=== PATIENT | male | born 1960 | race Caucasian/White ===

== ENCOUNTER 2021-05-01 16:53 | Inpatient (IN) | payer BC, SELFPAY ==
[2021-05-01 17:26] LABS: #Lymphocytes 0.8 thou/uL (1.20-3.40); #Monocytes 0.4 thou/uL (0.11-0.59); #Neutrophils 5.9 thou/uL (1.40-6.50); %Basophils 0.4 % (0.0-1.0); %Eosinophils 0.5 % (0.0-10.0); %Lymphocytes 11.1 % (21.0-51.0); %Monocytes 5.3 % (0.0-10.0); %Neutrophils 82.7 % (42.0-75.0); Hemoglobin 10.3 g/dL (14.0-18.0); Mean Corpuscular HGB CONC 34.3 g/dL (32.0-36.0); Mean Corpuscular Hemoglobin 35.5 pg (27.0-31.0); Mean Platelet Volume 9.8 fL (7.4-10.4); Platelet Count 110 thou/uL (130-400); RBC Distribution Width 18.3 % (11.5-14.5); White Blood Cell (WBC) Count 7.1 thou/uL (4.8-10.8)
[2021-05-01 17:44] LABS: ALT (SGPT) 44 U/L (8-55); AST (SGOT) 212 U/L (5-34); Albumin 2.8 g/dL (3.4-4.8); Alkaline Phosphatase 1059 U/L (40-110); Anion Gap 16 mmol/L (10-20); BUN (Urea Nitrogen) 10 mg/dL (8.4-25.7); Bilirubin, Total 20.7 mg/dL (0.2-1.2); Calc. Creatinine Clearance 0 mL/min (70-130); Calcium 8.7 mg/dL (7.8-10.44); Carbon Dioxide 25 mmol/L (23-31); Chloride 88 mmol/L (98-107); Globulin 3.1 g/dL (2.4-3.5); Glucose 113 mg/dL (80-115); Lipase 65 U/L (8-78); Potassium 3.4 mmol/L (3.5-5.1); Protein, Total 5.9 g/dL (5.8-8.1); Sodium 126 mmol/L (136-145)
[2021-05-01 18:50] LABS: Bilirubin 4+ (Negative); Blood, Urine Negative (Negative); Clarity Turbid (Clear); Glucose, Urine (Dipstick) Normal (Negative); Ketone, Urine 10 mg/dL (Negative); Leukocyte Negative Leu/uL (Negative); Nitrite Negative (Negative); Protein, Urine (Dipstick) Negative (Neg-Trace); Specific Gravity, Urine 1.012 (1.002-1.036); Urobilinogen 6 mg/dL (Less than 2)
[2021-05-01 21:18] LABS: PTT 34.1 sec (22.9-36.1); Prothrombin Time 13.5 sec (12.0-14.7)
[2021-05-01 21:21] LABS: Acetaminophen Less than 6.0 mcg/mL (10.0-30.0); Alcohol Less than 10 mg/dL (Less than 10); Salicylate Less than 8.0 mg/dL (15.0-30.0)
[2021-05-01 23:30] LABS: HBCM Index 0.08 S/CO (0-0.79); Hep A IgM AB Non-Reactive (NonReactive); Hep A IgM S/CO 0.11 S/CO (0-0.79); Hep B Surf Ag Non-Reactive S/CO (NonReactive); Hep C IgG Ab Non-Reactive (NonReactive); Hep C Index 0.33 S/CO (0-0.79); Hepatitis B Core IgM Abs Non-Reactive (NonReactive)
[2021-05-02 04:53] VITALS: BMI 25.3
[2021-05-02] MEDS ORDERED: Sodium Chloride 0.9% 1,000 ML IV SCH (08:00)
[2021-05-02] MEDS ORDERED: Ondansetron PF 4 MG/2 ML Vial IVP PRN (08:15)
[2021-05-02] MEDS ORDERED: Ondansetron ODT 4 MG TAB PO PRN ×2 (08:15→08:27)
[2021-05-02] MEDS ORDERED: Lorazepam 2 MG/ML VIAL IM PRN (08:27)
[2021-05-02] MEDS ORDERED: Lorazepam 1 MG TAB PO PRN (08:27)
[2021-05-02] MEDS ORDERED: Electrolyte Replacement Protocol 1 EACH FS PRN (08:30)
[2021-05-02 08:54] LABS: Sodium, Urine Less than 20 mmol/L (Not Available); Urea Nitrogen, Random Urine 257 mg/dl
[2021-05-02] MEDS ORDERED: Potassium Chloride 20 MEQ TAB PO SCH (09:00)
[2021-05-02 09:17] LABS: Magnesium 1.5 mg/dL (1.6-2.6); Sodium 130 mmol/L (136-145)
[2021-05-02] MEDS ORDERED: Magnesium 2 GM/50 ML 2 GM in Premix Bag 1 BAG IVPB SCH (10:15)
[2021-05-02] MEDS: Thiamine HCl 200 MG/2 ML VIAL SLOW IVP SCH (10:58)
[2021-05-02] MEDS: Nicotine 14 MG PATCH TD SCH (10:58)
[2021-05-02] MEDS: Enoxaparin Sodium 40 MG/0.4 ML SYRINGE SC SCH (11:00)
[2021-05-02] MEDS: Multivit, Therapeutic 1 TAB PO SCH (11:01)
[2021-05-02] MEDS: Folic Acid 1 MG TAB PO SCH (11:01)
[2021-05-02] MEDS: Lorazepam 1 MG TAB PO SCH ×2 (11:01→17:44)
[2021-05-02] MEDS: Sodium Chloride 0.9% 1,000 ML IV SCH (11:05)
[2021-05-02] MEDS ORDERED: Gabapentin 400 MG CAP PO SCH (11:45)
[2021-05-02 11:57] LABS: SARS-CoV-2 PCR by NAA Not Detected (NotDetected)
[2021-05-02 12:23] LABS: Amphetamine Not Detected (NotDetected); Barbiturates Screen Not Detected (NotDetected); Benzodiazepine Screen Not Detected (NotDetected); Cocaine Metabolite Screen Not Detected (NotDetected); Methadone Not Detected (NotDetected); Methamphetamine Not Detected (NotDetected); Opiate Screen Not Detected (NotDetected); Oxycodone Screen Not Detected (NotDetected); Phencyclidine (PCP) Not Detected (NotDetected); THC/Cannabinoid Screen Not Detected (NotDetected); Tricyclic Screen Not Detected (NotDetected)
[2021-05-02] MEDS: Gabapentin 400 MG CAP PO SCH ×2 (16:08→20:25)
[2021-05-02 16:12] LABS: Sodium 127 mmol/L (136-145)
[2021-05-02] MEDS ORDERED: prednisoLONE 10 MG ODT TAB PO SCH (16:45)
[2021-05-02 20:46] LABS: Sodium 128 mmol/L (136-145)
[2021-05-03] MEDS: Lorazepam 1 MG TAB PO SCH ×3 (02:35→10:38)
[2021-05-03] MEDS: Sodium Chloride 0.9% 1,000 ML IV SCH (02:36)
[2021-05-03 08:07] LABS: #Lymphocytes 0.9 thou/uL (1.20-3.40); #Monocytes 0.4 thou/uL (0.11-0.59); %Basophils 0.2 % (0.0-1.0); %Eosinophils 0.1 % (0.0-10.0); %Lymphocytes 11.6 % (21.0-51.0); %Neutrophils 82.1 % (42.0-75.0); Hemoglobin 9.1 g/dL (14.0-18.0); Mean Corpuscular HGB CONC 33.7 g/dL (32.0-36.0); Mean Corpuscular Hemoglobin 35.5 pg (27.0-31.0); Mean Platelet Volume 10.6 fL (7.4-10.4); Platelet Count 110 thou/uL (130-400); RBC Distribution Width 18.8 % (11.5-14.5); Red Blood Cell (RBC) Count 2.56 mill/uL (4.70-6.10); White Blood Cell (WBC) Count 7.3 thou/uL (4.8-10.8)
[2021-05-03 08:12] LABS: Sodium 131 mmol/L (136-145)
[2021-05-03 08:18] LABS: ALT (SGPT) 36 U/L (8-55); AST (SGOT) 180 U/L (5-34); Albumin 2.7 g/dL (3.4-4.8); Alkaline Phosphatase 909 U/L (40-110); Anion Gap 13 mmol/L (10-20); BUN (Urea Nitrogen) 8 mg/dL (8.4-25.7); Bilirubin, Total 20.1 mg/dL (0.2-1.2); Calc. Creatinine Clearance 146 mL/min (70-130); Calcium 8.6 mg/dL (7.8-10.44); Carbon Dioxide 23 mmol/L (23-31); Chloride 97 mmol/L (98-107); Globulin 2.9 g/dL (2.4-3.5); Glucose 128 mg/dL (80-115); Potassium 3.7 mmol/L (3.5-5.1); Protein, Total 5.6 g/dL (5.8-8.1); Sodium 129 mmol/L (136-145)
[2021-05-03] MEDS ORDERED: Lorazepam 1 MG TAB PO PRN (08:27)
[2021-05-03 08:34] LABS: Ferritin 609.26 ng/mL (22-322)
[2021-05-03] MEDS ORDERED: prednisoLONE 10 MG ODT TAB PO SCH (09:00)
[2021-05-03 09:25] LABS: Vitamin B12 Greater than 2000 pg/mL (211-911)
[2021-05-03] MEDS: Gabapentin 400 MG CAP PO SCH ×2 (10:33→15:08)
[2021-05-03] MEDS: Folic Acid 1 MG TAB PO SCH (10:38)
[2021-05-03] MEDS: Thiamine HCl 200 MG/2 ML VIAL SLOW IVP SCH (10:38)
[2021-05-03] MEDS: Nicotine 14 MG PATCH TD SCH (10:38)
[2021-05-03] MEDS: Enoxaparin Sodium 40 MG/0.4 ML SYRINGE SC SCH (10:39)
[2021-05-03] MEDS: Multivit, Therapeutic 1 TAB PO SCH (10:41)
[2021-05-03] MEDS ORDERED: Sodium Chloride 1 GM TAB PO SCH ×2 (12:15→21:00)
[2021-05-03] MEDS ORDERED: Potassium Chloride 20 MEQ TAB PO SCH (14:00)
[2021-05-03 14:32] LABS: Sodium 132 mmol/L (136-145)
[2021-05-03 16:22] VITALS: BP 177/93; TEMP 98.1
[2021-05-04] MEDS ORDERED: Lorazepam 0.5 MG TAB PO SCH (06:00)
[2021-05-04] MEDS ORDERED: Lorazepam 1 MG TAB PO PRN (08:27)
[2021-05-05] MEDS ORDERED: Lorazepam 0.5 MG TAB PO PRN (08:27)
[2021-05-05] MEDS ORDERED: Thiamine 100 MG TAB PO SCH (09:00)
== END 2021-05-03 17:08 | disposition home or self-care (01) | DRG 433 ==
LOC: ERS 16:53 → T4-B 05-02 00:34
PROVIDERS: ADMIT Student in an Organized Health Care Education/Training Program; ATTEND Internal Medicine
DX: K70.11 Alcoholic hepatitis with ascites (principal); E87.1 Hypo-osmolality and hyponatremia; Z20.822 Contact with and (suspected) exposure to COVID-19; F10.10 Alcohol abuse, uncomplicated; F17.210 Nicotine dependence, cigarettes, uncomplicated; I10 Essential (primary) hypertension; D52.9 Folate deficiency anemia, unspecified; Z96.661 Presence of right artificial ankle joint; Z96.651 Presence of right artificial knee joint; Z79.899 Other long term (current) drug therapy; R53.83 Other fatigue; R82.998 Other abnormal findings in urine
CPT/HCPCS: 36415; 36416; 74177; 76705; 80053; 80074; 80306; 80307; 81003; 82248; 82607; 82728; 82746; 83690; 83735; 83930; 83935; 84295; 84300; 84540; 84560; 85025; 85610; 85730; 87086; J1650; J3411; J3475; J7050; J7510; U0003; U0005

== ENCOUNTER 2021-07-03 12:02 | Inpatient (IN) | payer SELFPAY ==
[2021-07-03 13:04] LABS: #Basophils 0.1 thou/uL (0.0-0.2); #Eosinphils 0.1 thou/uL (0.0-0.7); #Lymphocytes 1.6 thou/uL (1.20-3.40); #Monocytes 0.9 thou/uL (0.11-0.59); #Neutrophils 10.8 thou/uL (1.40-6.50); %Basophils 0.4 % (0.0-1.0); %Eosinophils 0.8 % (0.0-10.0); %Lymphocytes 11.9 % (21.0-51.0); %Monocytes 6.7 % (0.0-10.0); %Neutrophils 80.2 % (42.0-75.0); Hemoglobin 14.1 g/dL (14.0-18.0); Mean Corpuscular HGB CONC 32.7 g/dL (32.0-36.0); Mean Corpuscular Hemoglobin 35.7 pg (27.0-31.0); Mean Platelet Volume 8.3 fL (7.4-10.4); Platelet Count 188 thou/uL (130-400); RBC Distribution Width 12.9 % (11.5-14.5); Red Blood Cell (RBC) Count 3.95 mill/uL (4.70-6.10); White Blood Cell (WBC) Count 13.4 thou/uL (4.8-10.8)
[2021-07-03 13:32] LABS: ALT (SGPT) 17 U/L (8-55); AST (SGOT) 57 U/L (5-34); Albumin 4.1 g/dL (3.4-4.8); Alkaline Phosphatase 236 U/L (40-110); Anion Gap 18 mmol/L (10-20); BUN (Urea Nitrogen) 49 mg/dL (8.4-25.7); Bilirubin, Total 5.1 mg/dL (0.2-1.2); Calc. Creatinine Clearance 0 mL/min (70-130); Calcium 9.6 mg/dL (7.8-10.44); Carbon Dioxide 21 mmol/L (23-31); Chloride 97 mmol/L (98-107); Globulin 3.4 g/dL (2.4-3.5); Glucose 111 mg/dL (80-115); Potassium 4.8 mmol/L (3.5-5.1); Protein, Total 7.5 g/dL (5.8-8.1); Sodium 131 mmol/L (136-145)
[2021-07-03 16:05] LABS: INR-International Normal Ratio 1.4; Prothrombin Time 17.1 sec (12.0-14.7)
[2021-07-03] MEDS ORDERED: Ondansetron PF 4 MG/2 ML Vial IVP PRN (16:12)
[2021-07-03] MEDS ORDERED: Ondansetron ODT 4 MG TAB PO PRN (16:12)
[2021-07-03] MEDS ORDERED: Acetaminophen 650 MG Suppository PR PRN (16:12)
[2021-07-03] MEDS ORDERED: Acetaminophen 325 MG TAB PO PRN (16:12)
[2021-07-03 17:37] VITALS: BMI 25.2
[2021-07-03] MEDS: Albumin 25% 25 GM/100 ML BOT IVPB SCH (18:05)
[2021-07-03] MEDS: Gabapentin 300 MG CAP PO SCH (19:45)
[2021-07-04] MEDS: Albumin 25% 25 GM/100 ML BOT IVPB SCH
[2021-07-04 00:48] LABS: SARS-CoV-2 PCR by NAA Not Detected (NotDetected)
[2021-07-04 06:59] LABS: #Eosinphils 0.1 thou/uL (0.0-0.7); #Lymphocytes 1.5 thou/uL (1.20-3.40); #Monocytes 0.8 thou/uL (0.11-0.59); #Neutrophils 8.9 thou/uL (1.40-6.50); %Basophils 0.1 % (0.0-1.0); %Eosinophils 1.3 % (0.0-10.0); %Lymphocytes 13.5 % (21.0-51.0); %Monocytes 6.7 % (0.0-10.0); %Neutrophils 78.4 % (42.0-75.0); Mean Corpuscular HGB CONC 32.4 g/dL (32.0-36.0); Mean Corpuscular Hemoglobin 35.5 pg (27.0-31.0); Mean Platelet Volume 8.2 fL (7.4-10.4); Platelet Count 183 thou/uL (130-400); RBC Distribution Width 12.8 % (11.5-14.5); White Blood Cell (WBC) Count 11.3 thou/uL (4.8-10.8)
[2021-07-04 07:16] LABS: ALT (SGPT) 12 U/L (8-55); AST (SGOT) 35 U/L (5-34); Albumin 4.2 g/dL (3.4-4.8); Alkaline Phosphatase 175 U/L (40-110); Anion Gap 17 mmol/L (10-20); BUN (Urea Nitrogen) 55 mg/dL (8.4-25.7); Calc. Creatinine Clearance 24 mL/min (70-130); Calcium 9.3 mg/dL (7.8-10.44); Carbon Dioxide 20 mmol/L (23-31); Chloride 99 mmol/L (98-107); Globulin 2.6 g/dL (2.4-3.5); Glucose 107 mg/dL (80-115); Potassium 4.2 mmol/L (3.5-5.1); Protein, Total 6.8 g/dL (5.8-8.1); Sodium 132 mmol/L (136-145)
[2021-07-04] MEDS: Stress 600 With Zinc 1 TAB PO SCH (08:34)
[2021-07-04] MEDS: Gabapentin 300 MG CAP PO SCH ×3 (08:34→21:22)
[2021-07-05 06:15] LABS: #Eosinphils 0.1 thou/uL (0.0-0.7); #Lymphocytes 1.2 thou/uL (1.20-3.40); #Monocytes 0.7 thou/uL (0.11-0.59); #Neutrophils 7.8 thou/uL (1.40-6.50); %Basophils 0.3 % (0.0-1.0); %Eosinophils 1.4 % (0.0-10.0); %Lymphocytes 12.5 % (21.0-51.0); %Monocytes 7.1 % (0.0-10.0); %Neutrophils 78.8 % (42.0-75.0); Hemoglobin 10.5 g/dL (14.0-18.0); Mean Corpuscular HGB CONC 33.5 g/dL (32.0-36.0); Mean Corpuscular Hemoglobin 36.6 pg (27.0-31.0); Mean Platelet Volume 8.4 fL (7.4-10.4); Platelet Count 139 thou/uL (130-400); RBC Distribution Width 12.6 % (11.5-14.5); Red Blood Cell (RBC) Count 2.87 mill/uL (4.70-6.10); White Blood Cell (WBC) Count 9.9 thou/uL (4.8-10.8)
[2021-07-05 06:39] LABS: ALT (SGPT) 12 U/L (8-55); AST (SGOT) 32 U/L (5-34); Albumin 3.5 g/dL (3.4-4.8); Alkaline Phosphatase 168 U/L (40-110); Anion Gap 14 mmol/L (10-20); BUN (Urea Nitrogen) 52 mg/dL (8.4-25.7); Bilirubin, Total 4.5 mg/dL (0.2-1.2); Calc. Creatinine Clearance 28 mL/min (70-130); Calcium 8.7 mg/dL (7.8-10.44); Carbon Dioxide 21 mmol/L (23-31); Chloride 100 mmol/L (98-107); Globulin 2.5 g/dL (2.4-3.5); Glucose 102 mg/dL (80-115); Potassium 4.1 mmol/L (3.5-5.1); Sodium 131 mmol/L (136-145)
[2021-07-05 08:32] VITALS: BP 115/70; TEMP 98
[2021-07-05] MEDS: Gabapentin 300 MG CAP PO SCH ×2 (08:43→11:49)
[2021-07-05] MEDS: Stress 600 With Zinc 1 TAB PO SCH (08:55)
== END 2021-07-05 14:55 | disposition home or self-care (01) | DRG 682 ==
LOC: ERS 12:02 → 2SW 15:22 → OBSVTOIN 07-04 12:29 → T4-B 07-04 18:41
PROVIDERS: ADMIT Family Medicine; ATTEND Internal Medicine
DX: N17.9 Acute kidney failure, unspecified (principal); K76.7 Hepatorenal syndrome; E87.1 Hypo-osmolality and hyponatremia; Z20.822 Contact with and (suspected) exposure to COVID-19; K70.30 Alcoholic cirrhosis of liver without ascites; F10.10 Alcohol abuse, uncomplicated; Z96.651 Presence of right artificial knee joint; Z96.611 Presence of right artificial shoulder joint; F17.210 Nicotine dependence, cigarettes, uncomplicated; N18.30 Chronic kidney disease, stage 3 unspecified; I12.9 Hypertensive chronic kidney disease with stage 1 through stage 4 chronic kidney disease, or unspecified chronic kidney disease; N18.4 Chronic kidney disease, stage 4 (severe); Z79.899 Other long term (current) drug therapy
CPT/HCPCS: 36415; 80053; 85025; 85610; 96374; 96376; 99283; G0378; P9047; U0003; U0005

== ENCOUNTER 2021-07-23 13:24 | Emergency (ER) | payer SELFPAY ==
[2021-07-23 14:50] LABS: #Eosinphils 0.1 thou/uL (0.0-0.7); #Lymphocytes 1.2 thou/uL (1.20-3.40); #Monocytes 0.8 thou/uL (0.11-0.59); #Neutrophils 7.5 thou/uL (1.40-6.50); %Basophils 0.1 % (0.0-1.0); %Eosinophils 1.2 % (0.0-10.0); %Lymphocytes 12.4 % (21.0-51.0); %Monocytes 7.8 % (0.0-10.0); %Neutrophils 78.5 % (42.0-75.0); Mean Corpuscular HGB CONC 32.7 g/dL (32.0-36.0); Mean Corpuscular Hemoglobin 35.3 pg (27.0-31.0); Mean Platelet Volume 8.4 fL (7.4-10.4); Platelet Count 177 thou/uL (130-400); RBC Distribution Width 12.4 % (11.5-14.5); White Blood Cell (WBC) Count 9.6 thou/uL (4.8-10.8)
[2021-07-23 15:15] LABS: ALT (SGPT) 12 U/L (8-55); AST (SGOT) 32 U/L (5-34); Albumin 3.3 g/dL (3.4-4.8); Alkaline Phosphatase 167 U/L (40-110); Anion Gap 16 mmol/L (10-20); BUN (Urea Nitrogen) 51 mg/dL (8.4-25.7); Bilirubin, Total 3.4 mg/dL (0.2-1.2); Calc. Creatinine Clearance 0 mL/min (70-130); Calcium 9.1 mg/dL (7.8-10.44); Carbon Dioxide 21 mmol/L (23-31); Chloride 96 mmol/L (98-107); Globulin 3.3 g/dL (2.4-3.5); Glucose 116 mg/dL (80-115); Potassium 3.8 mmol/L (3.5-5.1); Protein, Total 6.6 g/dL (5.8-8.1); Sodium 129 mmol/L (136-145)
[2021-07-23 15:23] LABS: INR-International Normal Ratio 1.4; PTT 39.4 sec (22.9-36.1)
[2021-07-23 18:18] LABS: RBC Count-Automated (BF) 56 /cu.mm; WBC/Nucleated-Auto (BF) 103 /cu.mm
[2021-07-23 18:31] LABS: BF Color Yellow; Body Fluid Source Ascites Body Fluid; Clarity Clear (Clear); Tube # EDTA
[2021-07-23 18:33] LABS: BF Segmented Neutrophils 26 %; Cell Count Non Hematic 51 %; Lymphocytes 23 %
== END 2021-07-23 17:55 | disposition home or self-care (01) ==
LOC: ERS 13:24
DX: R18.8 Other ascites (principal); I12.9 Hypertensive chronic kidney disease with stage 1 through stage 4 chronic kidney disease, or unspecified chronic kidney disease; N18.9 Chronic kidney disease, unspecified; K72.90 Hepatic failure, unspecified without coma; F17.210 Nicotine dependence, cigarettes, uncomplicated; Z79.899 Other long term (current) drug therapy
CPT/HCPCS: 49083; 80053; 85025; 85060; 85610; 85730; 87070; 87205; 89051; 94760

== ENCOUNTER 2021-08-14 00:38 | Emergency (ER) | payer SELFPAY ==
[2021-08-14 01:13] LABS: #Eosinphils 0.1 thou/uL (0.0-0.7); #Lymphocytes 1.4 thou/uL (1.20-3.40); #Monocytes 0.7 thou/uL (0.11-0.59); #Neutrophils 5.7 thou/uL (1.40-6.50); %Basophils 0.2 % (0.0-1.0); %Eosinophils 1.4 % (0.0-10.0); %Lymphocytes 17.7 % (21.0-51.0); %Monocytes 8.8 % (0.0-10.0); %Neutrophils 71.9 % (42.0-75.0); Hemoglobin 10.4 g/dL (14.0-18.0); Mean Corpuscular HGB CONC 33.7 g/dL (32.0-36.0); Mean Corpuscular Hemoglobin 36.3 pg (27.0-31.0); Mean Platelet Volume 7.2 fL (7.4-10.4); Platelet Count 208 thou/uL (130-400); RBC Distribution Width 11.6 % (11.5-14.5); Red Blood Cell (RBC) Count 2.87 mill/uL (4.70-6.10); White Blood Cell (WBC) Count 7.9 thou/uL (4.8-10.8)
[2021-08-14 01:25] LABS: INR-International Normal Ratio 1.2; PTT 38.2 sec (22.9-36.1); Prothrombin Time 15.6 sec (12.0-14.7)
[2021-08-14 01:49] LABS: ALT (SGPT) 11 U/L (8-55); AST (SGOT) 40 U/L (5-34); Albumin 2.9 g/dL (3.4-4.8); Alkaline Phosphatase 147 U/L (40-110); Anion Gap 13 mmol/L (10-20); BUN (Urea Nitrogen) 34 mg/dL (8.4-25.7); Bilirubin, Total 2.4 mg/dL (0.2-1.2); Calc. Creatinine Clearance 0 mL/min (70-130); Calcium 9.2 mg/dL (7.8-10.44); Carbon Dioxide 26 mmol/L (23-31); Chloride 96 mmol/L (98-107); Globulin 3.6 g/dL (2.4-3.5); Glucose 119 mg/dL (80-115); Potassium 4.2 mmol/L (3.5-5.1); Protein, Total 6.5 g/dL (5.8-8.1); Sodium 131 mmol/L (136-145)
[2021-08-14] MEDS ORDERED: Xylocaine 1% w/ Epi 1:100K 10 ML VIAL ONE (02:04)
== END 2021-08-14 03:43 | disposition home or self-care (01) ==
LOC: ERS 00:38
DX: K70.31 Alcoholic cirrhosis of liver with ascites (principal); R06.02 Shortness of breath; I10 Essential (primary) hypertension; F17.210 Nicotine dependence, cigarettes, uncomplicated
CPT/HCPCS: 36415; 49083; 80053; 85025; 85610; 85730

== ENCOUNTER 2021-08-23 13:33 | Emergency (ER) | payer BC, SELFPAY ==
[2021-08-23 14:25] LABS: #Basophils 0.1 thou/uL (0.0-0.2); #Eosinphils 0.2 thou/uL (0.0-0.7); #Lymphocytes 1.5 thou/uL (1.20-3.40); #Monocytes 0.7 thou/uL (0.11-0.59); #Neutrophils 5.8 thou/uL (1.40-6.50); %Basophils 0.7 % (0.0-1.0); %Eosinophils 2.1 % (0.0-10.0); %Monocytes 8.8 % (0.0-10.0); %Neutrophils 70.5 % (42.0-75.0); Hemoglobin 10.1 g/dL (14.0-18.0); Mean Corpuscular HGB CONC 32.8 g/dL (32.0-36.0); Mean Corpuscular Hemoglobin 34.7 pg (27.0-31.0); Mean Platelet Volume 7.1 fL (7.4-10.4); Platelet Count 231 thou/uL (130-400); RBC Distribution Width 11.7 % (11.5-14.5); White Blood Cell (WBC) Count 8.2 thou/uL (4.8-10.8)
[2021-08-23] MEDS ORDERED: Lidocaine 1% PF 5 ML VIAL ONE (14:25)
[2021-08-23 14:42] LABS: ALT (SGPT) 10 U/L (8-55); AST (SGOT) 28 U/L (5-34); Albumin 2.6 g/dL (3.4-4.8); Alkaline Phosphatase 131 U/L (40-110); Anion Gap 13 mmol/L (10-20); BUN (Urea Nitrogen) 35 mg/dL (8.4-25.7); Bilirubin, Total 2.4 mg/dL (0.2-1.2); Calc. Creatinine Clearance 0 mL/min (70-130); Calcium 8.8 mg/dL (7.8-10.44); Carbon Dioxide 26 mmol/L (23-31); Chloride 95 mmol/L (98-107); Globulin 3.3 g/dL (2.4-3.5); Glucose 127 mg/dL (80-115); Potassium 3.5 mmol/L (3.5-5.1); Protein, Total 5.9 g/dL (5.8-8.1); Sodium 130 mmol/L (136-145)
== END 2021-08-23 15:50 | disposition home or self-care (01) ==
LOC: ERS 13:33
DX: R18.8 Other ascites (principal); I10 Essential (primary) hypertension; F17.210 Nicotine dependence, cigarettes, uncomplicated; Z79.899 Other long term (current) drug therapy
CPT/HCPCS: 36415; 49083; 80053; 85025

== ENCOUNTER 2021-09-04 07:49 | Day surgery (SDC) | payer BC ==
[2021-08-31 11:11] VITALS: BMI 25.7
[2021-09-04] MEDS ORDERED: Lidocaine 1% PF 5 ML VIAL ONE (08:03)
[2021-09-04] MEDS ORDERED: Albumin 25% 0 ML ONE (08:03)
[2021-09-04] MEDS ORDERED: Sodium Bicarbonate 2.5 MEQ/5 ML VIAL ONE (08:03)
[2021-09-04 10:18] VITALS: BP 103/67; TEMP 97.6
== END 2021-09-04 10:00 | disposition home or self-care (01) ==
LOC: ULT 07:49
PROVIDERS: ATTEND Internal Medicine Gastroenterology
PROC: 0W9G3ZZ Drainage of Peritoneal Cavity, Percutaneous Approach (ICD-10-PCS; principal; 2021-09-04)
DX: K74.60 Unspecified cirrhosis of liver (principal); R18.8 Other ascites; I10 Essential (primary) hypertension; F10.21 Alcohol dependence, in remission; F17.210 Nicotine dependence, cigarettes, uncomplicated; Z79.899 Other long term (current) drug therapy
CPT/HCPCS: 49083; P9047

== ENCOUNTER 2021-09-20 09:40 | Day surgery (SDC) | payer BC ==
[2021-09-19 14:54] VITALS: BMI 25.7
[2021-09-20] MEDS ORDERED: Lidocaine 1% PF 5 ML VIAL ONE (10:36)
[2021-09-20] MEDS ORDERED: Sodium Bicarbonate 2.5 MEQ/5 ML VIAL ONE (10:36)
[2021-09-20] MEDS ORDERED: Albumin 25% 100 ML ONE (10:37)
[2021-09-20 13:44] VITALS: BP 113/75; TEMP 97.8
== END 2021-09-20 11:45 | disposition home or self-care (01) ==
LOC: ULT 09:40
PROVIDERS: ATTEND Internal Medicine Gastroenterology
PROC: 0W9G3ZZ Drainage of Peritoneal Cavity, Percutaneous Approach (ICD-10-PCS; principal; 2021-09-20)
DX: K74.60 Unspecified cirrhosis of liver (principal); R18.8 Other ascites; I10 Essential (primary) hypertension; F17.210 Nicotine dependence, cigarettes, uncomplicated; F10.21 Alcohol dependence, in remission; Z79.899 Other long term (current) drug therapy
CPT/HCPCS: 49083; P9047

== ENCOUNTER 2021-10-02 07:34 | Day surgery (SDC) | payer BC ==
[2021-09-28 13:53] VITALS: BMI 25.7
[2021-10-02] MEDS ORDERED: Albumin 25% 100 ML ONE (07:46)
[2021-10-02] MEDS ORDERED: Lidocaine 1% PF 5 ML VIAL ONE (07:46)
[2021-10-02] MEDS ORDERED: Sodium Bicarbonate 2.5 MEQ/5 ML VIAL ONE (07:46)
[2021-10-02 08:05] LABS: #Basophils 0.1 thou/uL (0.0-0.2); #Eosinphils 0.2 thou/uL (0.0-0.7); #Lymphocytes 1.7 thou/uL (1.20-3.40); #Monocytes 0.8 thou/uL (0.11-0.59); #Neutrophils 7.1 thou/uL (1.40-6.50); %Basophils 0.7 % (0.0-1.0); %Eosinophils 2.3 % (0.0-10.0); %Lymphocytes 17.1 % (21.0-51.0); %Monocytes 8.3 % (0.0-10.0); %Neutrophils 71.6 % (42.0-75.0); Hemoglobin 10.9 g/dL (14.0-18.0); Mean Corpuscular HGB CONC 32.9 g/dL (32.0-36.0); Mean Platelet Volume 7.4 fL (7.4-10.4); Platelet Count 248 thou/uL (130-400); RBC Distribution Width 12.2 % (11.5-14.5); Red Blood Cell (RBC) Count 3.21 mill/uL (4.70-6.10); White Blood Cell (WBC) Count 9.9 thou/uL (4.8-10.8)
[2021-10-02 08:18] LABS: INR-International Normal Ratio 1.2
[2021-10-02 08:19] LABS: PTT 40.4 sec (22.9-36.1)
[2021-10-02 08:24] LABS: Anion Gap 16 mmol/L (10-20); BUN (Urea Nitrogen) 34 mg/dL (8.4-25.7); Calc. Creatinine Clearance 0 mL/min (70-130); Calcium 9.6 mg/dL (7.8-10.44); Carbon Dioxide 20 mmol/L (23-31); Chloride 96 mmol/L (98-107); Estimated GFR 39; Glucose 115 mg/dL (80-115); Potassium 4.5 mmol/L (3.5-5.1); Sodium 127 mmol/L (136-145)
[2021-10-02 10:00] VITALS: BP 94/66; TEMP 97.8
== END 2021-10-02 10:00 | disposition home or self-care (01) ==
LOC: ULT 07:34
PROVIDERS: ATTEND Internal Medicine Gastroenterology
PROC: 0W9G3ZZ Drainage of Peritoneal Cavity, Percutaneous Approach (ICD-10-PCS; principal; 2021-10-02)
DX: R18.8 Other ascites (principal)
CPT/HCPCS: 36415; 49083; 80048; 85025; 85610; 85730; P9047

== ENCOUNTER 2021-10-09 09:59 | Emergency (ER) | payer BC ==
[2021-10-09 10:53] LABS: #Basophils 0.1 thou/uL (0.0-0.2); #Eosinphils 0.3 thou/uL (0.0-0.7); #Lymphocytes 1.7 thou/uL (1.20-3.40); #Monocytes 0.7 thou/uL (0.11-0.59); #Neutrophils 7.3 thou/uL (1.40-6.50); %Basophils 1.2 % (0.0-1.0); %Eosinophils 2.8 % (0.0-10.0); %Lymphocytes 16.9 % (21.0-51.0); %Monocytes 7.2 % (0.0-10.0); %Neutrophils 71.8 % (42.0-75.0); Hemoglobin 11.4 g/dL (14.0-18.0); Mean Corpuscular HGB CONC 33.4 g/dL (32.0-36.0); Mean Corpuscular Hemoglobin 34.4 pg (27.0-31.0); Mean Platelet Volume 7.5 fL (7.4-10.4); Platelet Count 251 thou/uL (130-400); RBC Distribution Width 12.2 % (11.5-14.5); Red Blood Cell (RBC) Count 3.32 mill/uL (4.70-6.10); White Blood Cell (WBC) Count 10.2 thou/uL (4.8-10.8)
[2021-10-09 11:27] LABS: ALT (SGPT) 16 U/L (8-55); AST (SGOT) 38 U/L (5-34); Albumin 2.9 g/dL (3.4-4.8); Alkaline Phosphatase 130 U/L (40-110); Anion Gap 14 mmol/L (10-20); BUN (Urea Nitrogen) 37 mg/dL (8.4-25.7); Bilirubin, Total 1.2 mg/dL (0.2-1.2); Calc. Creatinine Clearance 0 mL/min (70-130); Calcium 10.2 mg/dL (7.8-10.44); Carbon Dioxide 20 mmol/L (23-31); Chloride 97 mmol/L (98-107); Estimated GFR 45; Globulin 3.4 g/dL (2.4-3.5); Glucose 129 mg/dL (80-115); Potassium 4.8 mmol/L (3.5-5.1); Protein, Total 6.3 g/dL (5.8-8.1); Sodium 126 mmol/L (136-145)
== END 2021-10-09 12:35 | disposition home or self-care (01) ==
LOC: ERS 09:59
DX: E87.1 Hypo-osmolality and hyponatremia (principal); I12.9 Hypertensive chronic kidney disease with stage 1 through stage 4 chronic kidney disease, or unspecified chronic kidney disease; N18.9 Chronic kidney disease, unspecified; F17.210 Nicotine dependence, cigarettes, uncomplicated; Z79.899 Other long term (current) drug therapy
CPT/HCPCS: 80053; 85025; 93005

== ENCOUNTER 2021-10-16 08:02 | Day surgery (SDC) | payer BC ==
[2021-10-15 09:39] VITALS: BMI 25.1
[2021-10-16] MEDS ORDERED: Sodium Bicarbonate 2.5 MEQ/5 ML VIAL ONE (08:06)
[2021-10-16] MEDS ORDERED: Lidocaine 1% PF 5 ML VIAL ONE (08:06)
[2021-10-16] MEDS ORDERED: Albumin 25% 100 ML ONE (08:06)
[2021-10-16] MEDS ORDERED: Albumin 25% 25 GM/100 ML BOT IVPB ONE (08:30)
[2021-10-16 12:47] VITALS: BP 101/65
== END 2021-10-16 09:35 | disposition home or self-care (01) ==
LOC: ULT 08:02
PROVIDERS: ATTEND Internal Medicine Gastroenterology
PROC: 0W9G3ZZ Drainage of Peritoneal Cavity, Percutaneous Approach (ICD-10-PCS; principal; 2021-10-16)
DX: K74.60 Unspecified cirrhosis of liver (principal); R18.8 Other ascites
CPT/HCPCS: 49083; P9047

== ENCOUNTER 2021-11-01 07:47 | Day surgery (SDC) | payer BC ==
[2021-11-01 07:57] LABS: #Basophils 0.1 thou/uL (0.0-0.2); #Eosinphils 0.4 thou/uL (0.0-0.7); #Lymphocytes 1.5 thou/uL (1.20-3.40); #Monocytes 0.7 thou/uL (0.11-0.59); %Basophils 0.6 % (0.0-1.0); %Eosinophils 4.6 % (0.0-10.0); %Lymphocytes 16.9 % (21.0-51.0); %Monocytes 7.9 % (0.0-10.0); Hemoglobin 10.6 g/dL (14.0-18.0); Mean Corpuscular HGB CONC 33.8 g/dL (32.0-36.0); Mean Corpuscular Hemoglobin 34.3 pg (27.0-31.0); Mean Platelet Volume 7.1 fL (7.4-10.4); Platelet Count 265 thou/uL (130-400); RBC Distribution Width 12.2 % (11.5-14.5); White Blood Cell (WBC) Count 8.6 thou/uL (4.8-10.8)
[2021-11-01] MEDS ORDERED: Lidocaine 1% PF 5 ML VIAL ONE (08:03)
[2021-11-01] MEDS ORDERED: Sodium Bicarbonate 2.5 MEQ/5 ML VIAL ONE (08:03)
[2021-11-01 08:05] LABS: INR-International Normal Ratio 1.1; Prothrombin Time 14.7 sec (12.0-14.7)
[2021-11-01 08:16] LABS: ALT (SGPT) 25 U/L (8-55); AST (SGOT) 40 U/L (5-34); Albumin 2.9 g/dL (3.4-4.8); Alkaline Phosphatase 145 U/L (40-110); Anion Gap 14 mmol/L (10-20); BUN (Urea Nitrogen) 44 mg/dL (8.4-25.7); Calc. Creatinine Clearance 46 mL/min (70-130); Calcium 9.3 mg/dL (7.8-10.44); Carbon Dioxide 19 mmol/L (23-31); Chloride 97 mmol/L (98-107); Estimated GFR 53; Globulin 3.3 g/dL (2.4-3.5); Glucose 116 mg/dL (80-115); Potassium 4.3 mmol/L (3.5-5.1); Protein, Total 6.2 g/dL (5.8-8.1); Sodium 126 mmol/L (136-145)
[2021-11-01 10:10] VITALS: BP 114/69; TEMP 97.7; BMI 19.4
[2021-11-01 13:23] LABS: RBC Count-Automated (BF) 130 /cu.mm; WBC/Nucleated-Auto (BF) 76 /cu.mm
[2021-11-01 13:27] LABS: BF Color Yellow; Body Fluid Source Ascites Body Fluid; Clarity Hazy (Clear); Tube # EDTA
[2021-11-01 13:45] LABS: BF Segmented Neutrophils 17 %; Cell Count Non Hematic 36 %; Eosinophils 1 %; Lymphocytes 46 %
[2021-11-01 14:27] LABS: Follow-up Chemistry Comp? YES; Follow-up Result - Chemistry REPORT FAXED
== END 2021-11-01 09:55 | disposition home or self-care (01) ==
LOC: ULT 07:47
PROVIDERS: ATTEND Internal Medicine Gastroenterology
PROC: 0W9G3ZX Drainage of Peritoneal Cavity, Percutaneous Approach, Diagnostic (ICD-10-PCS; principal; 2021-11-01)
DX: K70.31 Alcoholic cirrhosis of liver with ascites (principal); K72.90 Hepatic failure, unspecified without coma; G47.00 Insomnia, unspecified; I10 Essential (primary) hypertension; F17.210 Nicotine dependence, cigarettes, uncomplicated; F10.11 Alcohol abuse, in remission; I95.89 Other hypotension; Z79.899 Other long term (current) drug therapy
CPT/HCPCS: 49083; 80053; 82042; 84157; 85025; 85060; 85610; 87070; 87205; 88112; 88305; 89051

== ENCOUNTER 2021-11-07 15:00 | Day surgery (SDC) | payer BC ==
[2021-11-07] MEDS ORDERED: Albumin 25% 25 GM/100 ML BOT IVPB SCH (15:15)
[2021-11-07 16:01] VITALS: BP 103/67; TEMP 97.9
== END 2021-11-07 17:05 | disposition home or self-care (01) ==
LOC: ONC/OP 15:00
PROVIDERS: ATTEND Internal Medicine Gastroenterology
DX: K70.31 Alcoholic cirrhosis of liver with ascites (principal)
CPT/HCPCS: 96365; P9047

== ENCOUNTER 2021-11-09 09:25 | Outpatient (CLI) | payer BC ==
[2021-11-09 10:37] LABS: #Basophils 0.1 10x3/uL (0.0-0.2); #Eosinphils 0.3 10x3/uL (0.0-0.5); #Monocytes 0.5 10x3/uL (0.0-1.1); #Neutrophils 5.6 10x3/uL (1.5-8.4); %Basophils 0.7 % (0.0-2.0); %Eosinophils 3.5 % (0.0-6.0); %Lymphocytes 14.4 % (18.0-47.0); %Monocytes 6.8 % (0.0-10.0); %Neutrophils 74.2 % (40.0-75.0); Hemoglobin 9.9 g/dL (13.5-17.5); Mean Corpuscular HGB CONC 35.5 g/dL (32.0-36.0); Mean Corpuscular Hemoglobin 33.8 pg (27.0-33.0); Mean Corpuscular Volume 95.2 fl (81.2-95.1); Platelet Count 203 10x3/uL (150-450); RBC Distribution Width 12.7 % (11.5-14.5); Red Blood Cell (RBC) Count 2.93 10x6/uL (4.32-5.72); White Blood Cell (WBC) Count 7.5 10x3/uL (3.5-10.5)
[2021-11-09 10:39] LABS: INR-International Normal Ratio 1.1; PTT 27.8 sec (22.0-33.0); Prothrombin Time 11.5 sec (9.5-12.1)
[2021-11-09 10:42] LABS: Anion Gap 12 mmol/L (10-20); BUN (Urea Nitrogen) 43 mg/dL (8.4-25.7); Calc. Creatinine Clearance 0 mL/min (70-130); Calcium 8.8 mg/dL (7.8-10.44); Carbon Dioxide 20 mmol/L (23-31); Chloride 97 mmol/L (98-107); Estimated GFR 61; Glucose 129 mg/dL (80-115); Potassium 4.5 mmol/L (3.5-5.1); Sodium 124 mmol/L (136-145)
== END 2021-11-09 09:26 | disposition home or self-care (01) ==
LOC: LABBT 09:25
PROVIDERS: ATTEND Surgery
DX: Z01.812 Encounter for preprocedural laboratory examination (principal); Z20.822 Contact with and (suspected) exposure to COVID-19
CPT/HCPCS: 80048; 85025; 85610; 85730; 87811

== ENCOUNTER 2021-11-14 09:38 | Day surgery (SDC) | payer BC ==
[2021-11-13 11:04] VITALS: BMI 22.3
[2021-11-14] MEDS ORDERED: Bupivacaine/Epinephrine 0.25% 30 ML VIAL ONE (11:00)
[2021-11-14] MEDS ORDERED: fentaNYL Citrate/PF 100 MCG/2 ML SYRINGE ONE (11:07)
[2021-11-14] MEDS ORDERED: Propofol 1,000 MG/100 ML VIAL IV ONE (11:07)
[2021-11-14] MEDS ORDERED: CEFAZOLIN 2 GM VIAL ONE (12:03)
[2021-11-14] MEDS ORDERED: Sodium Chloride 0.9% 100 ML ONE (12:03)
[2021-11-14] MEDS ORDERED: Lidocaine 1% PF 5 ML VIAL ONE (12:18)
== END 2021-11-14 15:55 | disposition home or self-care (01) ==
LOC: SDC 09:38
PROVIDERS: ATTEND Surgery
PROC: 02HV33Z Insertion of Infusion Device into Superior Vena Cava, Percutaneous Approach (ICD-10-PCS; principal; 2021-11-14)
PROC: 0JH60WZ Insertion of Totally Implantable Vascular Access Device into Chest Subcutaneous Tissue and Fascia, Open Approach (ICD-10-PCS; principal; 2021-11-14)
DX: I87.2 Venous insufficiency (chronic) (peripheral) (principal); K74.60 Unspecified cirrhosis of liver; K76.6 Portal hypertension; F17.210 Nicotine dependence, cigarettes, uncomplicated; M19.90 Unspecified osteoarthritis, unspecified site; Z79.899 Other long term (current) drug therapy
CPT/HCPCS: 71045; C1788; J0690; J1642; J2704; J3490

== ENCOUNTER 2021-11-15 08:09 | Day surgery (SDC) | payer BC ==
[2021-11-15] MEDS ORDERED: Lidocaine 1% MPF 2 ML VIAL ONE (08:27)
[2021-11-15] MEDS ORDERED: Albumin 25% 200 ML ONE (08:27)
[2021-11-15] MEDS ORDERED: Sodium Bicarbonate 2.5 MEQ/5 ML VIAL ONE (08:27)
[2021-11-15 09:39] LABS: INR-International Normal Ratio 1.2; Prothrombin Time 15.6 sec (12.0-14.7)
[2021-11-15 09:44] LABS: ALT (SGPT) 14 U/L (8-55); AST (SGOT) 34 U/L (5-34); Albumin 2.9 g/dL (3.4-4.8); Alkaline Phosphatase 122 U/L (40-110); Anion Gap 13 mmol/L (10-20); BUN (Urea Nitrogen) 44 mg/dL (8.4-25.7); Bilirubin, Total 0.8 mg/dL (0.2-1.2); Calc. Creatinine Clearance 45 mL/min (70-130); Calcium 8.8 mg/dL (7.8-10.44); Carbon Dioxide 19 mmol/L (23-31); Chloride 99 mmol/L (98-107); Estimated GFR 52; Globulin 2.9 g/dL (2.4-3.5); Glucose 113 mg/dL (80-115); Potassium 4.4 mmol/L (3.5-5.1); Protein, Total 5.8 g/dL (5.8-8.1); Sodium 127 mmol/L (136-145)
[2021-11-15 10:59] VITALS: BP 97/66; TEMP 97.7; BMI 22.2
== END 2021-11-15 10:30 | disposition home or self-care (01) ==
LOC: ULT 08:09
PROVIDERS: ATTEND Internal Medicine Gastroenterology
PROC: 0W9G3ZZ Drainage of Peritoneal Cavity, Percutaneous Approach (ICD-10-PCS; principal; 2021-11-15)
DX: K70.31 Alcoholic cirrhosis of liver with ascites (principal); F10.10 Alcohol abuse, uncomplicated; K72.90 Hepatic failure, unspecified without coma; G47.00 Insomnia, unspecified
CPT/HCPCS: 49083; 80053; 85610; J1642; P9047

== ENCOUNTER 2021-11-29 07:41 | Day surgery (SDC) | payer BC ==
[2021-11-27 11:20] VITALS: BMI 19.5
[2021-11-29] MEDS ORDERED: Lidocaine 1% MPF 2 ML VIAL ONE (07:51)
[2021-11-29] MEDS ORDERED: Sodium Bicarbonate 2.5 MEQ/5 ML VIAL ONE (07:51)
[2021-11-29] MEDS ORDERED: Albumin 25% 200 ML ONE (07:51)
[2021-11-29 10:27] LABS: #Eosinphils 0.4 thou/uL (0.0-0.7); #Lymphocytes 1.3 thou/uL (1.20-3.40); #Monocytes 0.7 thou/uL (0.11-0.59); #Neutrophils 5.9 thou/uL (1.40-6.50); %Basophils 0.6 % (0.0-1.0); %Eosinophils 4.4 % (0.0-10.0); %Lymphocytes 15.2 % (21.0-51.0); %Neutrophils 71.8 % (42.0-75.0); Hemoglobin 8.8 g/dL (14.0-18.0); Mean Corpuscular HGB CONC 34.6 g/dL (32.0-36.0); Mean Corpuscular Hemoglobin 34.4 pg (27.0-31.0); Mean Corpuscular Volume 99.4 fL (78.0-98.0); Mean Platelet Volume 7.5 fL (7.4-10.4); Platelet Count 222 thou/uL (130-400); RBC Distribution Width 11.9 % (11.5-14.5); Red Blood Cell (RBC) Count 2.56 mill/uL (4.70-6.10); White Blood Cell (WBC) Count 8.3 thou/uL (4.8-10.8)
[2021-11-29 10:51] LABS: ALT (SGPT) 13 U/L (8-55); AST (SGOT) 26 U/L (5-34); Albumin 2.9 g/dL (3.4-4.8); Alkaline Phosphatase 122 U/L (40-110); Anion Gap 15 mmol/L (10-20); BUN (Urea Nitrogen) 60 mg/dL (8.4-25.7); Bilirubin, Total 0.8 mg/dL (0.2-1.2); Calc. Creatinine Clearance 24 mL/min (70-130); Calcium 8.8 mg/dL (7.8-10.44); Carbon Dioxide 16 mmol/L (23-31); Chloride 103 mmol/L (98-107); Estimated GFR 25; Globulin 2.6 g/dL (2.4-3.5); Glucose 121 mg/dL (80-115); Potassium 3.8 mmol/L (3.5-5.1); Protein, Total 5.5 g/dL (5.8-8.1); Sodium 130 mmol/L (136-145)
[2021-11-29 10:55] LABS: INR-International Normal Ratio 1.2; Prothrombin Time 15.7 sec (12.0-14.7)
== END 2021-11-29 09:45 | disposition home or self-care (01) ==
LOC: ULT 07:41
PROVIDERS: ATTEND Internal Medicine Gastroenterology
PROC: 0W9G3ZZ Drainage of Peritoneal Cavity, Percutaneous Approach (ICD-10-PCS; principal; 2021-11-29)
DX: K74.60 Unspecified cirrhosis of liver (principal); R18.8 Other ascites; Z79.899 Other long term (current) drug therapy
CPT/HCPCS: 49083; 80053; 85025; 85610; J1642; P9047

== ENCOUNTER 2021-12-13 07:51 | Day surgery (SDC) | payer BC ==
[2021-12-12 09:17] VITALS: BMI 23.7
[2021-12-13] MEDS ORDERED: Albumin 25% 100 ML ONE ×2 (07:56→08:03)
[2021-12-13] MEDS ORDERED: Sodium Bicarbonate 2.5 MEQ/5 ML VIAL ONE (07:56)
[2021-12-13] MEDS ORDERED: Lidocaine 2% PF 5 ML VIAL ONE ×2 (07:56→08:48)
[2021-12-13 09:50] VITALS: BP 121/71; TEMP 98.8
[2021-12-13 10:41] LABS: #Eosinphils 0.3 thou/uL (0.0-0.7); #Lymphocytes 1.3 thou/uL (1.20-3.40); #Monocytes 0.6 thou/uL (0.11-0.59); #Neutrophils 5.6 thou/uL (1.40-6.50); %Basophils 0.4 % (0.0-1.0); %Eosinophils 4.1 % (0.0-10.0); %Lymphocytes 16.9 % (21.0-51.0); %Monocytes 7.4 % (0.0-10.0); %Neutrophils 71.2 % (42.0-75.0); Mean Corpuscular HGB CONC 33.3 g/dL (32.0-36.0); Mean Corpuscular Hemoglobin 33.6 pg (27.0-31.0); Mean Platelet Volume 7.9 fL (7.4-10.4); Platelet Count 192 thou/uL (130-400); RBC Distribution Width 12.5 % (11.5-14.5); Red Blood Cell (RBC) Count 2.69 mill/uL (4.70-6.10); White Blood Cell (WBC) Count 7.9 thou/uL (4.8-10.8)
[2021-12-13 10:59] LABS: INR-International Normal Ratio 1.2; Prothrombin Time 15.5 sec (12.0-14.7)
[2021-12-13 11:10] LABS: ALT (SGPT) 17 U/L (8-55); AST (SGOT) 34 U/L (5-34); Albumin 3.1 g/dL (3.4-4.8); Alkaline Phosphatase 131 U/L (40-110); Anion Gap 14 mmol/L (10-20); BUN (Urea Nitrogen) 31 mg/dL (8.4-25.7); Bilirubin, Total 1.4 mg/dL (0.2-1.2); Calc. Creatinine Clearance 59 mL/min (70-130); Calcium 9.1 mg/dL (7.8-10.44); Carbon Dioxide 15 mmol/L (23-31); Chloride 105 mmol/L (98-107); Estimated GFR 56; Globulin 2.7 g/dL (2.4-3.5); Glucose 113 mg/dL (80-115); Potassium 4.1 mmol/L (3.5-5.1); Protein, Total 5.8 g/dL (5.8-8.1); Sodium 130 mmol/L (136-145)
== END 2021-12-13 09:45 | disposition home or self-care (01) ==
LOC: ULT 07:51
PROVIDERS: ATTEND Internal Medicine Gastroenterology
PROC: 0W9G3ZZ Drainage of Peritoneal Cavity, Percutaneous Approach (ICD-10-PCS; principal; 2021-12-13)
DX: K70.31 Alcoholic cirrhosis of liver with ascites (principal); Z79.899 Other long term (current) drug therapy
CPT/HCPCS: 49083; 80053; 85025; 85610; J1642; J2001; P9047

== ENCOUNTER → 2021-12-20 | Day surgery (SDC) | payer BC ==
[~2021-12-20] MED LIST: Albumin 25% 200 ML ONE; Lidocaine 2% PF 5 ML VIAL ONE
[2021-12-20 11:14] LABS: #Eosinphils 0.4 thou/uL (0.0-0.7); #Lymphocytes 1.2 thou/uL (1.20-3.40); #Monocytes 0.6 thou/uL (0.11-0.59); #Neutrophils 6.6 thou/uL (1.40-6.50); %Basophils 0.4 % (0.0-1.0); %Lymphocytes 13.4 % (21.0-51.0); %Monocytes 7.3 % (0.0-10.0); %Neutrophils 74.9 % (42.0-75.0); Hemoglobin 8.5 g/dL (14.0-18.0); Mean Corpuscular HGB CONC 33.7 g/dL (32.0-36.0); Mean Corpuscular Hemoglobin 34.2 pg (27.0-31.0); Mean Platelet Volume 7.8 fL (7.4-10.4); Platelet Count 206 thou/uL (130-400); RBC Distribution Width 12.4 % (11.5-14.5); Red Blood Cell (RBC) Count 2.47 mill/uL (4.70-6.10); White Blood Cell (WBC) Count 8.8 thou/uL (4.8-10.8)
[2021-12-20 11:27] LABS: INR-International Normal Ratio 1.3; Prothrombin Time 16.4 sec (12.0-14.7)
[2021-12-20 11:28] LABS: PTT 35.7 sec (22.9-36.1)
[2021-12-20 11:33] LABS: ALT (SGPT) 16 U/L (8-55); AST (SGOT) 33 U/L (5-34); Albumin 2.8 g/dL (3.4-4.8); Alkaline Phosphatase 126 U/L (40-110); Anion Gap 14 mmol/L (10-20); BUN (Urea Nitrogen) 33 mg/dL (8.4-25.7); Bilirubin, Total 0.6 mg/dL (0.2-1.2); Calc. Creatinine Clearance 0 mL/min (70-130); Calcium 8.6 mg/dL (7.8-10.44); Carbon Dioxide 15 mmol/L (23-31); Chloride 104 mmol/L (98-107); Estimated GFR 54; Globulin 2.5 g/dL (2.4-3.5); Glucose 123 mg/dL (80-115); Potassium 4.3 mmol/L (3.5-5.1); Protein, Total 5.3 g/dL (5.8-8.1); Sodium 129 mmol/L (136-145)
== END | disposition home or self-care (01) ==
LOC: ULT 09:32
PROVIDERS: ATTEND Internal Medicine Gastroenterology
PROC: 0W9G3ZZ Drainage of Peritoneal Cavity, Percutaneous Approach (ICD-10-PCS; principal; 2021-12-20)
DX: K70.31 Alcoholic cirrhosis of liver with ascites (principal); F10.10 Alcohol abuse, uncomplicated; K72.90 Hepatic failure, unspecified without coma
CPT/HCPCS: 49083; 80053; 85025; 85610; 85730; J1642; J2001; P9047

== ENCOUNTER 2021-12-27 07:31 | Day surgery (SDC) | payer BC ==
[2021-12-27] MEDS ORDERED: Lidocaine 2% PF 5 ML VIAL ONE (08:41)
[2021-12-27] MEDS ORDERED: Sodium Bicarbonate 2.5 MEQ/5 ML VIAL ONE (08:41)
[2021-12-27] MEDS ORDERED: Albumin 25% 200 ML ONE (08:41)
[2021-12-27 10:45] LABS: #Eosinphils 0.4 thou/uL (0.0-0.7); #Monocytes 0.6 thou/uL (0.11-0.59); %Basophils 0.7 % (0.0-1.0); %Eosinophils 5.1 % (0.0-10.0); %Lymphocytes 14.1 % (21.0-51.0); %Monocytes 8.2 % (0.0-10.0); %Neutrophils 71.9 % (42.0-75.0); Hemoglobin 7.7 g/dL (14.0-18.0); Mean Corpuscular HGB CONC 33.4 g/dL (32.0-36.0); Mean Corpuscular Hemoglobin 34.3 pg (27.0-31.0); Platelet Count 152 thou/uL (130-400); RBC Distribution Width 12.7 % (11.5-14.5); Red Blood Cell (RBC) Count 2.25 mill/uL (4.70-6.10); White Blood Cell (WBC) Count 6.9 thou/uL (4.8-10.8)
[2021-12-27 10:48] LABS: INR-International Normal Ratio 1.3; PTT 39.9 sec (22.9-36.1); Prothrombin Time 16.2 sec (12.0-14.7)
[2021-12-27 11:25] LABS: ALT (SGPT) 16 U/L (8-55); AST (SGOT) 35 U/L (5-34); Albumin 3.6 g/dL (3.4-4.8); Alkaline Phosphatase 118 U/L (40-110); Anion Gap 9 mmol/L (10-20); BUN (Urea Nitrogen) 24 mg/dL (8.4-25.7); Bilirubin, Total 0.8 mg/dL (0.2-1.2); Calc. Creatinine Clearance 0 mL/min (70-130); Calcium 8.6 mg/dL (7.8-10.44); Carbon Dioxide 19 mmol/L (23-31); Chloride 104 mmol/L (98-107); Estimated GFR 87; Globulin 2.1 g/dL (2.4-3.5); Glucose 81 mg/dL (80-115); Potassium 4.8 mmol/L (3.5-5.1); Protein, Total 5.7 g/dL (5.8-8.1); Sodium 127 mmol/L (136-145)
[2021-12-27 12:10] VITALS: BP 94/68; TEMP 98.8
== END 2021-12-27 10:55 | disposition home or self-care (01) ==
LOC: ULT 07:31
PROVIDERS: ATTEND Internal Medicine Gastroenterology
PROC: 0W9G3ZZ Drainage of Peritoneal Cavity, Percutaneous Approach (ICD-10-PCS; principal; 2021-12-27)
PROC: BW40ZZZ Ultrasonography of Abdomen (ICD-10-PCS; principal; 2021-12-27)
DX: K74.60 Unspecified cirrhosis of liver (principal); R18.8 Other ascites
CPT/HCPCS: 49083; 80053; 85025; 85610; 85730; J1642; J2001; P9047

== ENCOUNTER 2022-01-03 09:53 | Day surgery (SDC) | payer BC ==
[2022-01-02 12:50] VITALS: BMI 19.3
[2022-01-03] MEDS ORDERED: Albumin 25% 200 ML ONE (10:09)
[2022-01-03] MEDS ORDERED: Sodium Bicarbonate 2.5 MEQ/5 ML VIAL ONE (10:09)
[2022-01-03] MEDS ORDERED: Lidocaine 2% PF 5 ML VIAL ONE (10:09)
[2022-01-03 11:58] VITALS: BP 101/56; TEMP 97.8
== END 2022-01-03 11:35 | disposition home or self-care (01) ==
LOC: ULT 09:53
PROVIDERS: ATTEND Internal Medicine Gastroenterology
PROC: 0W9G3ZZ Drainage of Peritoneal Cavity, Percutaneous Approach (ICD-10-PCS; principal; 2022-01-03)
DX: K74.60 Unspecified cirrhosis of liver (principal); R18.8 Other ascites; K72.90 Hepatic failure, unspecified without coma; I10 Essential (primary) hypertension; F17.210 Nicotine dependence, cigarettes, uncomplicated; F10.11 Alcohol abuse, in remission; Z79.2 Long term (current) use of antibiotics; Z79.899 Other long term (current) drug therapy
CPT/HCPCS: 49083; J1642; J2001; P9047

== ENCOUNTER 2022-01-10 10:08 | Day surgery (SDC) | payer BC ==
[2022-01-09 12:57] VITALS: BMI 19.3
[2022-01-10] MEDS ORDERED: Lidocaine 2% PF 5 ML VIAL ONE (10:16)
[2022-01-10] MEDS ORDERED: Sodium Bicarbonate 2.5 MEQ/5 ML VIAL ONE (10:16)
[2022-01-10] MEDS ORDERED: Albumin 25% 200 ML ONE (10:16)
[2022-01-10 11:17] LABS: #Eosinphils 0.5 thou/uL (0.0-0.7); #Lymphocytes 1.1 thou/uL (1.20-3.40); #Monocytes 0.6 thou/uL (0.11-0.59); #Neutrophils 5.3 thou/uL (1.40-6.50); %Basophils 0.5 % (0.0-1.0); %Lymphocytes 15.1 % (21.0-51.0); %Monocytes 8.4 % (0.0-10.0); %Neutrophils 70.1 % (42.0-75.0); Hemoglobin 8.7 g/dL (14.0-18.0); Mean Corpuscular HGB CONC 33.1 g/dL (32.0-36.0); Mean Corpuscular Hemoglobin 33.5 pg (27.0-31.0); Mean Platelet Volume 7.6 fL (7.4-10.4); Platelet Count 171 thou/uL (130-400); RBC Distribution Width 12.8 % (11.5-14.5); Red Blood Cell (RBC) Count 2.61 mill/uL (4.70-6.10); White Blood Cell (WBC) Count 7.6 thou/uL (4.8-10.8)
[2022-01-10 12:17] LABS: INR-International Normal Ratio 1.2; Prothrombin Time 15.2 sec (12.0-14.7)
[2022-01-10 12:18] LABS: PTT 36.2 sec (22.9-36.1)
[2022-01-10 12:32] VITALS: BP 120/71; TEMP 97.4
[2022-01-10 13:53] LABS: RBC Count-Automated (BF) 178 /cu.mm
[2022-01-10 14:29] LABS: WBC/Nucleated-Auto (BF) 100 /cu.mm
[2022-01-10 14:52] LABS: BF Color Yellow; Body Fluid Source Ascites Body Fluid; Clarity Hazy (Clear); Tube # EDTA
[2022-01-10 15:25] LABS: BF Segmented Neutrophils 22 %; Cell Count Non Hematic 31 %; Lymphocytes 46 %
== END 2022-01-10 12:10 | disposition home or self-care (01) ==
LOC: ULT 10:08
PROVIDERS: ATTEND Internal Medicine Gastroenterology
PROC: 0W9G30Z Drainage of Peritoneal Cavity with Drainage Device, Percutaneous Approach (ICD-10-PCS; principal; 2022-01-10)
DX: R18.8 Other ascites (principal); K74.60 Unspecified cirrhosis of liver; N17.9 Acute kidney failure, unspecified; K76.82 Hepatic encephalopathy; I85.00 Esophageal varices without bleeding; G47.00 Insomnia, unspecified; I95.9 Hypotension, unspecified; F17.210 Nicotine dependence, cigarettes, uncomplicated; Z79.2 Long term (current) use of antibiotics; Z79.899 Other long term (current) drug therapy; Z98.890 Other specified postprocedural states
CPT/HCPCS: 49083; 82042; 84157; 85025; 85060; 85610; 85730; 87070; 87205; 88112; 88305; 89051; J1642; J2001; P9047

== ENCOUNTER 2022-01-24 07:41 | Day surgery (SDC) | payer BC ==
[2022-01-23 14:43] VITALS: BMI 19.4
[2022-01-24] MEDS ORDERED: Sodium Bicarbonate 2.5 MEQ/5 ML VIAL ONE (08:57)
[2022-01-24] MEDS ORDERED: Lidocaine 2% PF 5 ML VIAL ONE (08:57)
[2022-01-24 09:40] LABS: INR-International Normal Ratio 1.3; Prothrombin Time 16.5 sec (12.0-14.7)
[2022-01-24 09:48] LABS: ALT (SGPT) 14 U/L (8-55); AST (SGOT) 39 U/L (5-34); Albumin 3.1 g/dL (3.4-4.8); Alkaline Phosphatase 111 U/L (40-110); Anion Gap 13 mmol/L (10-20); BUN (Urea Nitrogen) 19 mg/dL (8.4-25.7); Bilirubin, Total 0.9 mg/dL (0.2-1.2); Calc. Creatinine Clearance 59 mL/min (70-130); Calcium 8.6 mg/dL (7.8-10.44); Carbon Dioxide 16 mmol/L (23-31); Chloride 109 mmol/L (98-107); Estimated GFR 72; Glucose 90 mg/dL (80-115); Potassium 4.5 mmol/L (3.5-5.1); Protein, Total 5.1 g/dL (5.8-8.1); Sodium 133 mmol/L (136-145)
[2022-01-24 09:54] LABS: #Basophils 0.1 thou/uL (0.0-0.2); #Eosinphils 0.7 thou/uL (0.0-0.7); #Lymphocytes 1.2 thou/uL (1.20-3.40); #Monocytes 0.5 thou/uL (0.11-0.59); #Neutrophils 4.4 thou/uL (1.40-6.50); %Basophils 0.8 % (0.0-1.0); %Lymphocytes 17.9 % (21.0-51.0); %Monocytes 7.7 % (0.0-10.0); %Neutrophils 63.6 % (42.0-75.0); Hemoglobin 8.4 g/dL (14.0-18.0); Mean Corpuscular HGB CONC 33.6 g/dL (32.0-36.0); Mean Corpuscular Hemoglobin 34.5 pg (27.0-31.0); Mean Platelet Volume 8.3 fL (7.4-10.4); Platelet Count 159 thou/uL (130-400); RBC Distribution Width 12.6 % (11.5-14.5); Red Blood Cell (RBC) Count 2.43 mill/uL (4.70-6.10); White Blood Cell (WBC) Count 6.9 thou/uL (4.8-10.8)
[2022-01-24 10:18] VITALS: BP 132/70; TEMP 98
[2022-01-24 11:21] LABS: RBC Count-Automated (BF) 6092 /cu.mm; WBC/Nucleated-Auto (BF) 200 /cu.mm
[2022-01-24 11:29] LABS: BF Color Yellow; Body Fluid Source Ascites Body Fluid; Clarity Hazy (Clear); Tube # EDTA
[2022-01-24 11:57] LABS: BF Segmented Neutrophils 16 %; Cell Count Non Hematic 38 %; Lymphocytes 46 %
== END 2022-01-24 10:15 | disposition home or self-care (01) ==
LOC: ULT 07:41
PROVIDERS: ATTEND Internal Medicine Gastroenterology
PROC: 0W9G3ZX Drainage of Peritoneal Cavity, Percutaneous Approach, Diagnostic (ICD-10-PCS; principal; 2022-01-24)
DX: K74.60 Unspecified cirrhosis of liver (principal); R18.8 Other ascites; Z79.2 Long term (current) use of antibiotics; Z79.899 Other long term (current) drug therapy
CPT/HCPCS: 49083; 80053; 82042; 85025; 85060; 85610; 87070; 87205; 88112; 88305; 89051; J1642; J2001

== ENCOUNTER 2022-02-07 07:42 | Day surgery (SDC) | payer BC ==
[2022-02-06 03:07] VITALS: BMI 19.5
[~2022-02-07 07:42] MED LIST changes: -Albumin 25% 200 ML ONE; +FLU VACC QS2022-23(6MOS UP)/PF 60 MCG/0.5 ML SYRINGE IM ONE; -Lidocaine 2% PF 5 ML VIAL ONE
[2022-02-07] MEDS ORDERED: Albumin 25% 200 ML ONE (07:50)
[2022-02-07] MEDS ORDERED: Sodium Bicarbonate 2.5 MEQ/5 ML VIAL ONE (07:50)
[2022-02-07] MEDS ORDERED: Lidocaine 2% PF 5 ML VIAL ONE (07:50)
[2022-02-07] MEDS ORDERED: Albumin 25% 25 GM/100 ML BOT IVPB SCH (08:15)
[2022-02-07 09:13] LABS: #Eosinphils 0.5 thou/uL (0.0-0.7); #Monocytes 0.5 thou/uL (0.11-0.59); #Neutrophils 4.5 thou/uL (1.40-6.50); %Basophils 0.3 % (0.0-1.0); %Eosinophils 7.2 % (0.0-10.0); %Lymphocytes 15.2 % (21.0-51.0); %Monocytes 8.2 % (0.0-10.0); Hemoglobin 7.9 g/dL (14.0-18.0); Mean Corpuscular HGB CONC 34.3 g/dL (32.0-36.0); Platelet Count 169 10x3/uL (130-400); RBC Distribution Width 12.8 % (11.5-14.5); Red Blood Cell (RBC) Count 2.25 mill/uL (4.70-6.10); White Blood Cell (WBC) Count 6.5 10x3/uL (4.8-10.8)
[2022-02-07 09:30] LABS: ALT (SGPT) 13 U/L (8-55); AST (SGOT) 29 U/L (5-34); Albumin 3.3 g/dL (3.4-4.8); Alkaline Phosphatase 108 U/L (40-110); Anion Gap 9 mmol/L (10-20); BUN (Urea Nitrogen) 21 mg/dL (8.4-25.7); Calc. Creatinine Clearance 56 mL/min (70-130); Calcium 8.6 mg/dL (7.8-10.44); Carbon Dioxide 17 mmol/L (23-31); Chloride 109 mmol/L (98-107); Estimated GFR 67; Glucose 100 mg/dL (80-115); Potassium 4.2 mmol/L (3.5-5.1); Protein, Total 5.3 g/dL (5.8-8.1); Sodium 131 mmol/L (136-145)
[2022-02-07 09:34] LABS: INR-International Normal Ratio 1.3; Prothrombin Time 16.7 sec (12.0-14.7)
[2022-02-07 11:09] VITALS: BP 111/55
== END 2022-02-07 10:10 | disposition home or self-care (01) ==
LOC: ULT 07:42
PROVIDERS: ATTEND Internal Medicine Gastroenterology
PROC: 0W9G3ZZ Drainage of Peritoneal Cavity, Percutaneous Approach (ICD-10-PCS; principal; 2022-02-07)
DX: K74.60 Unspecified cirrhosis of liver (principal); R18.8 Other ascites; K76.82 Hepatic encephalopathy; Z79.2 Long term (current) use of antibiotics; Z79.899 Other long term (current) drug therapy
CPT/HCPCS: 49083; 80053; 85025; 85610; J1642; J2001; P9047

== ENCOUNTER 2022-02-14 09:37 | Day surgery (SDC) | payer BC ==
[2022-02-13 12:36] VITALS: BMI 19.5
[2022-02-14] MEDS ORDERED: Lidocaine 2% PF 5 ML VIAL ONE (09:42)
[2022-02-14] MEDS ORDERED: Albumin 25% 200 ML ONE (09:42)
[2022-02-14] MEDS ORDERED: Sodium Bicarbonate 2.5 MEQ/5 ML VIAL ONE (09:42)
[2022-02-14 10:48] LABS: #Eosinphils 0.5 thou/uL (0.0-0.7); #Monocytes 0.4 thou/uL (0.11-0.59); #Neutrophils 3.6 thou/uL (1.40-6.50); %Basophils 0.4 % (0.0-1.0); %Eosinophils 9.1 % (0.0-10.0); %Lymphocytes 18.5 % (21.0-51.0); %Monocytes 7.1 % (0.0-10.0); %Neutrophils 64.9 % (42.0-75.0); Hemoglobin 8.4 g/dL (14.0-18.0); Mean Corpuscular HGB CONC 34.2 g/dL (32.0-36.0); Mean Corpuscular Hemoglobin 34.8 pg (27.0-31.0); Mean Platelet Volume 7.8 fL (7.4-10.4); Platelet Count 158 10x3/uL (130-400); RBC Distribution Width 12.7 % (11.5-14.5); Red Blood Cell (RBC) Count 2.42 mill/uL (4.70-6.10); White Blood Cell (WBC) Count 5.5 10x3/uL (4.8-10.8)
[2022-02-14 10:51] VITALS: BP 134/78; TEMP 97.7
[2022-02-14 11:00] LABS: INR-International Normal Ratio 1.2; Prothrombin Time 16.2 sec (12.0-14.7)
[2022-02-14 11:12] LABS: ALT (SGPT) 18 U/L (8-55); AST (SGOT) 47 U/L (5-34); Albumin 3.1 g/dL (3.4-4.8); Alkaline Phosphatase 122 U/L (40-110); Anion Gap 11 mmol/L (10-20); BUN (Urea Nitrogen) 15 mg/dL (8.4-25.7); Calc. Creatinine Clearance 60 mL/min (70-130); Calcium 8.4 mg/dL (7.8-10.44); Carbon Dioxide 16 mmol/L (23-31); Chloride 107 mmol/L (98-107); Estimated GFR 72; Globulin 2.1 g/dL (2.4-3.5); Glucose 144 mg/dL (80-115); Potassium 3.9 mmol/L (3.5-5.1); Protein, Total 5.2 g/dL (5.8-8.1); Sodium 130 mmol/L (136-145)
== END 2022-02-14 11:55 | disposition home or self-care (01) ==
LOC: ULT 09:37
PROVIDERS: ATTEND Internal Medicine Gastroenterology
PROC: 0W9G3ZZ Drainage of Peritoneal Cavity, Percutaneous Approach (ICD-10-PCS; principal; 2022-02-14)
DX: K74.60 Unspecified cirrhosis of liver (principal); R18.8 Other ascites; K76.82 Hepatic encephalopathy; Z79.2 Long term (current) use of antibiotics; Z79.899 Other long term (current) drug therapy
CPT/HCPCS: 49083; 80053; 85025; 85610; J1642; J2001; P9047

== ENCOUNTER → 2022-02-20 | Day surgery (SDC) | payer BC ==
[2022-02-19 10:52] VITALS: BMI 19.3
[~2022-02-20] MED LIST changes: +Albumin 25% 200 ML ONE; -FLU VACC QS2022-23(6MOS UP)/PF 60 MCG/0.5 ML SYRINGE IM ONE; +Lidocaine 2% PF 5 ML VIAL ONE; +Sodium Bicarbonate 2.5 MEQ/5 ML VIAL ONE
[2022-02-20 08:32] LABS: #Eosinphils 0.4 thou/uL (0.0-0.7); #Lymphocytes 1.1 thou/uL (1.20-3.40); #Monocytes 0.5 thou/uL (0.11-0.59); %Basophils 0.2 % (0.0-1.0); %Lymphocytes 17.9 % (21.0-51.0); %Monocytes 8.3 % (0.0-10.0); %Neutrophils 66.6 % (42.0-75.0); Hemoglobin 7.9 g/dL (14.0-18.0); Mean Corpuscular HGB CONC 33.9 g/dL (32.0-36.0); Mean Corpuscular Hemoglobin 34.2 pg (27.0-31.0); Platelet Count 142 10x3/uL (130-400); RBC Distribution Width 12.5 % (11.5-14.5); Red Blood Cell (RBC) Count 2.29 mill/uL (4.70-6.10); White Blood Cell (WBC) Count 5.9 10x3/uL (4.8-10.8)
[2022-02-20 08:45] LABS: INR-International Normal Ratio 1.3; Prothrombin Time 17.1 sec (12.0-14.7)
[2022-02-20 08:46] LABS: PTT 41.6 sec (22.9-36.1)
[2022-02-20 09:23] LABS: ALT (SGPT) 14 U/L (8-55); AST (SGOT) 29 U/L (5-34); Albumin 3.4 g/dL (3.4-4.8); Alkaline Phosphatase 102 U/L (40-110); Anion Gap 11 mmol/L (10-20); BUN (Urea Nitrogen) 15 mg/dL (8.4-25.7); Bilirubin, Total 0.8 mg/dL (0.2-1.2); Calc. Creatinine Clearance 59 mL/min (70-130); Calcium 8.3 mg/dL (7.8-10.44); Carbon Dioxide 16 mmol/L (23-31); Chloride 110 mmol/L (98-107); Estimated GFR 72; Globulin 1.8 g/dL (2.4-3.5); Glucose 92 mg/dL (80-115); Potassium 3.9 mmol/L (3.5-5.1); Protein, Total 5.2 g/dL (5.8-8.1); Sodium 133 mmol/L (136-145)
[2022-02-20 10:05] VITALS: BP 137/75; TEMP 97.8
== END | disposition home or self-care (01) ==
LOC: ULT 07:28
PROVIDERS: ATTEND Internal Medicine Gastroenterology
PROC: 0W9G3ZZ Drainage of Peritoneal Cavity, Percutaneous Approach (ICD-10-PCS; principal; 2022-02-20)
DX: K74.60 Unspecified cirrhosis of liver (principal); R18.8 Other ascites; I85.10 Secondary esophageal varices without bleeding; K76.82 Hepatic encephalopathy
CPT/HCPCS: 49083; 80053; 85025; 85610; 85730; J1642; J2001; P9047

== ENCOUNTER → 2022-02-28 | Day surgery (SDC) | payer BC ==
[2022-02-27 13:49] VITALS: BMI 26.5
[2022-02-28 09:31] LABS: INR-International Normal Ratio 5.8; Prothrombin Time 54.7 sec (12.0-14.7)
[2022-02-28 09:48] LABS: ALT (SGPT) 10 U/L (8-55); AST (SGOT) 25 U/L (5-34); Alkaline Phosphatase 88 U/L (40-110); Anion Gap 7 mmol/L (10-20); BUN (Urea Nitrogen) 11 mg/dL (8.4-25.7); Calc. Creatinine Clearance 108 mL/min (70-130); Calcium 7.6 mg/dL (7.8-10.44); Carbon Dioxide 15 mmol/L (23-31); Chloride 115 mmol/L (98-107); Estimated GFR 98; Globulin 1.5 g/dL (2.4-3.5); Glucose 75 mg/dL (80-115); Potassium 3.8 mmol/L (3.5-5.1); Protein, Total 4.5 g/dL (5.8-8.1); Sodium 133 mmol/L (136-145)
== END | disposition home or self-care (01) ==
LOC: ULT 07:39
PROVIDERS: ATTEND Internal Medicine Gastroenterology
PROC: 0W9G3ZZ Drainage of Peritoneal Cavity, Percutaneous Approach (ICD-10-PCS; principal; 2022-02-28)
DX: K74.60 Unspecified cirrhosis of liver (principal); R18.8 Other ascites; K76.82 Hepatic encephalopathy; Z79.2 Long term (current) use of antibiotics; Z79.899 Other long term (current) drug therapy
CPT/HCPCS: 49083; 80053; 85610; J1642; J2001; P9047

== ENCOUNTER 2022-03-07 09:14 | Day surgery (SDC) | payer BC ==
[~2022-03-07 09:14] MED LIST changes: -Albumin 25% 200 ML ONE; +FLU VACC QS2022-23(6MOS UP)/PF 60 MCG/0.5 ML SYRINGE IM ONE; -Lidocaine 2% PF 5 ML VIAL ONE; +Prevnar 13-Val Conj/PF 0.5 ML SYRINGE IM ONE; -Sodium Bicarbonate 2.5 MEQ/5 ML VIAL ONE
[2022-03-07] MEDS ORDERED: Lidocaine 2% PF 5 ML VIAL ONE (10:54)
[2022-03-07] MEDS ORDERED: Sodium Bicarbonate 2.5 MEQ/5 ML VIAL ONE (10:54)
[2022-03-07 12:11] LABS: #Eosinphils 0.5 thou/uL (0.0-0.7); #Lymphocytes 1.1 thou/uL (1.20-3.40); #Monocytes 0.4 thou/uL (0.11-0.59); #Neutrophils 3.2 thou/uL (1.40-6.50); %Basophils 0.1 % (0.0-1.0); %Eosinophils 8.7 % (0.0-10.0); %Lymphocytes 21.5 % (21.0-51.0); %Monocytes 7.9 % (0.0-10.0); %Neutrophils 61.8 % (42.0-75.0); Hemoglobin 8.5 g/dL (14.0-18.0); Mean Corpuscular HGB CONC 33.1 g/dL (32.0-36.0); Mean Corpuscular Hemoglobin 33.6 pg (27.0-31.0); Mean Platelet Volume 8.1 fL (7.4-10.4); Platelet Count 152 10x3/uL (130-400); RBC Distribution Width 12.6 % (11.5-14.5); Red Blood Cell (RBC) Count 2.52 mill/uL (4.70-6.10); White Blood Cell (WBC) Count 5.2 10x3/uL (4.8-10.8)
[2022-03-07 12:19] LABS: PTT 54.9 sec (22.9-36.1)
[2022-03-07 12:20] LABS: INR-International Normal Ratio 1.3; Prothrombin Time 16.8 sec (12.0-14.7)
[2022-03-07 12:25] LABS: ALT (SGPT) 11 U/L (8-55); AST (SGOT) 32 U/L (5-34); Albumin 3.5 g/dL (3.4-4.8); Alkaline Phosphatase 105 U/L (40-110); Anion Gap 11 mmol/L (10-20); BUN (Urea Nitrogen) 12 mg/dL (8.4-25.7); Bilirubin, Total 1.4 mg/dL (0.2-1.2); Calc. Creatinine Clearance 0 mL/min (70-130); Calcium 8.9 mg/dL (7.8-10.44); Carbon Dioxide 18 mmol/L (23-31); Chloride 110 mmol/L (98-107); Estimated GFR 89; Globulin 1.8 g/dL (2.4-3.5); Glucose 89 mg/dL (80-115); Potassium 4.3 mmol/L (3.5-5.1); Protein, Total 5.3 g/dL (5.8-8.1); Sodium 135 mmol/L (136-145)
[2022-03-07 13:05] VITALS: BP 152/70; TEMP 97.9
== END 2022-03-07 12:55 | disposition home or self-care (01) ==
LOC: ULT 09:14
PROVIDERS: ATTEND Internal Medicine Gastroenterology
PROC: 0W9G3ZZ Drainage of Peritoneal Cavity, Percutaneous Approach (ICD-10-PCS; principal; 2022-03-07)
DX: K74.60 Unspecified cirrhosis of liver (principal); R18.8 Other ascites; K76.82 Hepatic encephalopathy; Z79.899 Other long term (current) drug therapy
CPT/HCPCS: 49083; 80053; 85025; 85610; 85730; J1642; J2001

== ENCOUNTER → 2022-03-14 | Day surgery (SDC) | payer BC ==
[2022-03-13 08:24] VITALS: BMI 19.4
[~2022-03-14] MED LIST changes: +Albumin 25% 200 ML ONE; -FLU VACC QS2022-23(6MOS UP)/PF 60 MCG/0.5 ML SYRINGE IM ONE; +Lidocaine 1% PF 5 ML VIAL ONE; -Prevnar 13-Val Conj/PF 0.5 ML SYRINGE IM ONE; +Sodium Bicarbonate 2.5 MEQ/5 ML VIAL ONE
[2022-03-14 10:25] LABS: #Eosinphils 0.4 thou/uL (0.0-0.7); #Lymphocytes 1.2 thou/uL (1.20-3.40); #Monocytes 0.5 thou/uL (0.11-0.59); #Neutrophils 3.2 thou/uL (1.40-6.50); %Basophils 0.2 % (0.0-1.0); %Eosinophils 8.1 % (0.0-10.0); %Lymphocytes 21.9 % (21.0-51.0); %Monocytes 9.1 % (0.0-10.0); %Neutrophils 60.7 % (42.0-75.0); Hemoglobin 8.1 g/dL (14.0-18.0); Mean Corpuscular HGB CONC 33.2 g/dL (32.0-36.0); Mean Corpuscular Hemoglobin 33.4 pg (27.0-31.0); Mean Platelet Volume 8.1 fL (7.4-10.4); Platelet Count 145 10x3/uL (130-400); RBC Distribution Width 12.4 % (11.5-14.5); Red Blood Cell (RBC) Count 2.42 mill/uL (4.70-6.10); White Blood Cell (WBC) Count 5.3 10x3/uL (4.8-10.8)
[2022-03-14 10:34] LABS: INR-International Normal Ratio 1.3; Prothrombin Time 16.2 sec (12.0-14.7)
[2022-03-14 10:35] LABS: PTT 53.5 sec (22.9-36.1)
[2022-03-14 10:40] LABS: ALT (SGPT) 8 U/L (8-55); AST (SGOT) 27 U/L (5-34); Albumin 3.4 g/dL (3.4-4.8); Alkaline Phosphatase 92 U/L (40-110); Anion Gap 8 mmol/L (10-20); BUN (Urea Nitrogen) 11 mg/dL (8.4-25.7); Calc. Creatinine Clearance 69 mL/min (70-130); Calcium 8.6 mg/dL (7.8-10.44); Carbon Dioxide 21 mmol/L (23-31); Chloride 109 mmol/L (98-107); Estimated GFR 87; Globulin 1.8 g/dL (2.4-3.5); Glucose 99 mg/dL (80-115); Protein, Total 5.2 g/dL (5.8-8.1); Sodium 134 mmol/L (136-145)
== END | disposition home or self-care (01) ==
LOC: ULT 09:29
PROVIDERS: ATTEND Internal Medicine Gastroenterology
PROC: 0W9G3ZZ Drainage of Peritoneal Cavity, Percutaneous Approach (ICD-10-PCS; principal; 2022-03-14)
DX: K74.60 Unspecified cirrhosis of liver (principal); R18.8 Other ascites; K76.82 Hepatic encephalopathy
CPT/HCPCS: 49083; 80053; 85025; 85610; 85730; J1642; P9047

== ENCOUNTER → 2022-03-20 | Day surgery (SDC) | payer BC ==
[~2022-03-20] MED LIST changes: +FLU VACC QS2022-23(6MOS UP)/PF 60 MCG/0.5 ML SYRINGE IM ONE
== END | disposition home or self-care (01) ==
LOC: ULT 07:23
PROVIDERS: ATTEND Internal Medicine Gastroenterology
PROC: 0W9G3ZZ Drainage of Peritoneal Cavity, Percutaneous Approach (ICD-10-PCS; principal; 2022-03-20)
DX: K74.60 Unspecified cirrhosis of liver (principal); R18.8 Other ascites; K76.82 Hepatic encephalopathy; Z79.2 Long term (current) use of antibiotics; Z79.899 Other long term (current) drug therapy
CPT/HCPCS: 49083; J1642; P9047

== ENCOUNTER 2022-04-04 08:50 | Day surgery (SDC) | payer BC ==
[2022-04-02 12:56] VITALS: BMI 19.4
[2022-04-04] MEDS ORDERED: Lidocaine 1% PF 5 ML VIAL ONE (09:19)
[2022-04-04] MEDS ORDERED: Albumin 25% 200 ML ONE (09:19)
[2022-04-04] MEDS ORDERED: Sodium Bicarbonate 2.5 MEQ/5 ML VIAL ONE (09:19)
[2022-04-04 10:17] LABS: #Eosinphils 0.4 thou/uL (0.0-0.7); #Lymphocytes 0.9 thou/uL (1.20-3.40); #Monocytes 0.4 thou/uL (0.11-0.59); #Neutrophils 3.2 thou/uL (1.40-6.50); %Basophils 0.4 % (0.0-1.0); %Eosinophils 7.3 % (0.0-10.0); %Lymphocytes 19.5 % (21.0-51.0); %Monocytes 7.7 % (0.0-10.0); %Neutrophils 65.1 % (42.0-75.0); Hemoglobin 8.3 g/dL (14.0-18.0); Mean Corpuscular HGB CONC 35.1 g/dL (32.0-36.0); Mean Corpuscular Volume 99.7 fl (78.0-98.0); Mean Platelet Volume 7.7 fL (7.4-10.4); Platelet Count 160 10x3/uL (130-400); RBC Distribution Width 12.6 % (11.5-14.5); Red Blood Cell (RBC) Count 2.37 mill/uL (4.70-6.10); White Blood Cell (WBC) Count 4.8 10x3/uL (4.8-10.8)
[2022-04-04 10:29] LABS: INR-International Normal Ratio 1.3; Prothrombin Time 16.8 sec (12.0-14.7)
[2022-04-04 10:33] LABS: ALT (SGPT) 11 U/L (8-55); AST (SGOT) 28 U/L (5-34); Albumin 3.2 g/dL (3.4-4.8); Alkaline Phosphatase 100 U/L (40-110); Anion Gap 10 mmol/L (10-20); BUN (Urea Nitrogen) 14 mg/dL (8.4-25.7); Bilirubin, Total 1.2 mg/dL (0.2-1.2); Calc. Creatinine Clearance 58 mL/min (70-130); Calcium 8.4 mg/dL (7.8-10.44); Carbon Dioxide 19 mmol/L (23-31); Chloride 111 mmol/L (98-107); Estimated GFR 70; Globulin 1.8 g/dL (2.4-3.5); Glucose 93 mg/dL (80-115); Potassium 3.6 mmol/L (3.5-5.1); Sodium 136 mmol/L (136-145)
[2022-04-04 10:47] LABS: PTT 148.6 sec (22.9-36.1)
[2022-04-04 11:11] VITALS: BP 159/87; TEMP 97.8
== END 2022-04-04 11:15 | disposition home or self-care (01) ==
LOC: ULT 08:50
PROVIDERS: ATTEND Internal Medicine Gastroenterology
PROC: 0W9G3ZZ Drainage of Peritoneal Cavity, Percutaneous Approach (ICD-10-PCS; principal; 2022-04-04)
DX: K74.60 Unspecified cirrhosis of liver (principal); R18.8 Other ascites; K76.82 Hepatic encephalopathy; G47.00 Insomnia, unspecified; F10.10 Alcohol abuse, uncomplicated; Z79.2 Long term (current) use of antibiotics; Z79.899 Other long term (current) drug therapy
CPT/HCPCS: 49083; 80053; 85025; 85610; 85730; J1642; P9047

== ENCOUNTER 2022-04-11 07:28 | Day surgery (SDC) | payer BC ==
[2022-04-10 09:14] VITALS: BMI 25.1
[~2022-04-11 07:28] MED LIST changes: -Albumin 25% 200 ML ONE; -Lidocaine 1% PF 5 ML VIAL ONE; -Sodium Bicarbonate 2.5 MEQ/5 ML VIAL ONE
[2022-04-11] MEDS ORDERED: Lidocaine 1% PF 5 ML VIAL ONE (07:37)
[2022-04-11] MEDS ORDERED: Albumin 25% 200 ML ONE (07:37)
[2022-04-11] MEDS ORDERED: Sodium Bicarbonate 2.5 MEQ/5 ML VIAL ONE (07:37)
[2022-04-11] MEDS ORDERED: Albumin 25% 25 GM/100 ML BOT IVPB SCH (08:00)
[2022-04-11 11:20] VITALS: BP 110/61
== END 2022-04-11 09:25 | disposition home or self-care (01) ==
LOC: ULT 07:28
PROVIDERS: ATTEND Internal Medicine Gastroenterology
PROC: 0W9G3ZZ Drainage of Peritoneal Cavity, Percutaneous Approach (ICD-10-PCS; principal; 2022-04-11)
DX: K74.60 Unspecified cirrhosis of liver (principal); R18.8 Other ascites; K76.82 Hepatic encephalopathy; Z79.2 Long term (current) use of antibiotics; Z79.899 Other long term (current) drug therapy
CPT/HCPCS: 49083; J1642; P9047

== ENCOUNTER 2022-04-18 09:21 | Day surgery (SDC) | payer BC ==
[2022-04-17 11:42] VITALS: BMI 25.1
[2022-04-18] MEDS ORDERED: Albumin 25% 200 ML ONE (09:39)
[2022-04-18] MEDS ORDERED: Lidocaine 1% PF 5 ML VIAL ONE (09:39)
[2022-04-18] MEDS ORDERED: Sodium Bicarbonate 2.5 MEQ/5 ML VIAL ONE (09:39)
[2022-04-18 12:24] LABS: #Eosinphils 0.5 thou/uL (0.0-0.7); #Monocytes 0.4 thou/uL (0.11-0.59); #Neutrophils 2.6 thou/uL (1.40-6.50); %Basophils 0.6 % (0.0-1.0); %Lymphocytes 22.6 % (21.0-51.0); %Monocytes 8.6 % (0.0-10.0); %Neutrophils 58.2 % (42.0-75.0); Hemoglobin 8.5 g/dL (14.0-18.0); Mean Corpuscular HGB CONC 34.2 g/dL (32.0-36.0); Mean Corpuscular Volume 99.5 fl (78.0-98.0); Mean Platelet Volume 7.9 fL (7.4-10.4); Platelet Count 155 10x3/uL (130-400); RBC Distribution Width 12.7 % (11.5-14.5); Red Blood Cell (RBC) Count 2.49 mill/uL (4.70-6.10); White Blood Cell (WBC) Count 4.5 10x3/uL (4.8-10.8)
[2022-04-18 12:39] LABS: INR-International Normal Ratio 1.3; PTT 42.5 sec (22.9-36.1); Prothrombin Time 16.5 sec (12.0-14.7)
[2022-04-18 12:46] LABS: ALT (SGPT) 13 U/L (8-55); AST (SGOT) 34 U/L (5-34); Albumin 2.9 g/dL (3.4-4.8); Alkaline Phosphatase 117 U/L (40-110); Anion Gap 11 mmol/L (10-20); BUN (Urea Nitrogen) 18 mg/dL (8.4-25.7); Bilirubin, Total 1.5 mg/dL (0.2-1.2); Calc. Creatinine Clearance 58 mL/min (70-130); Calcium 8.5 mg/dL (7.8-10.44); Carbon Dioxide 19 mmol/L (23-31); Chloride 110 mmol/L (98-107); Estimated GFR 52; Globulin 2.2 g/dL (2.4-3.5); Glucose 92 mg/dL (80-115); Potassium 3.8 mmol/L (3.5-5.1); Protein, Total 5.1 g/dL (5.8-8.1); Sodium 136 mmol/L (136-145)
[2022-04-18] MEDS ORDERED: Albumin 25% 25 GM/100 ML BOT IVPB SCH (13:15)
[2022-04-18 14:11] VITALS: BP 130/62
== END 2022-04-18 12:20 | disposition home or self-care (01) ==
LOC: ULT 09:21
PROVIDERS: ATTEND Internal Medicine Gastroenterology
PROC: 0W9G3ZZ Drainage of Peritoneal Cavity, Percutaneous Approach (ICD-10-PCS; principal; 2022-04-18)
DX: K70.31 Alcoholic cirrhosis of liver with ascites (principal); K76.82 Hepatic encephalopathy
CPT/HCPCS: 49083; 80053; 85025; 85610; 85730; J1642; P9047

== ENCOUNTER 2022-04-25 07:32 | Day surgery (SDC) | payer BC ==
[2022-04-25] MEDS ORDERED: Lidocaine 1% PF 5 ML VIAL ONE (07:37)
[2022-04-25] MEDS ORDERED: Sodium Bicarbonate 2.5 MEQ/5 ML VIAL ONE (07:37)
[2022-04-25 09:48] VITALS: BP 136/71; TEMP 97.9; BMI 19.5
[2022-04-25] MEDS ORDERED: FLU VACC QS2022-23(6MOS UP)/PF 60 MCG/0.5 ML SYRINGE IM ONE (14:00)
== END 2022-04-25 09:35 | disposition home or self-care (01) ==
LOC: ULT 07:32
PROVIDERS: ATTEND Internal Medicine Gastroenterology
PROC: 0W9G3ZZ Drainage of Peritoneal Cavity, Percutaneous Approach (ICD-10-PCS; principal; 2022-04-25)
DX: K70.31 Alcoholic cirrhosis of liver with ascites (principal); K76.82 Hepatic encephalopathy; Z79.2 Long term (current) use of antibiotics; Z79.899 Other long term (current) drug therapy
CPT/HCPCS: 49083; J1642

== ENCOUNTER 2022-05-02 07:25 | Day surgery (SDC) | payer BC ==
[2022-05-01 08:55] VITALS: BMI 19.4
[2022-05-02] MEDS ORDERED: Albumin 25% 200 ML ONE (07:35)
[2022-05-02] MEDS ORDERED: Lidocaine 1% PF 5 ML VIAL ONE (07:35)
[2022-05-02] MEDS ORDERED: Sodium Bicarbonate 2.5 MEQ/5 ML VIAL ONE (07:35)
[2022-05-02 09:10] VITALS: BP 108/68; TEMP 97.5
[2022-05-02 09:31] LABS: #Eosinphils 0.4 thou/uL (0.0-0.7); #Lymphocytes 1.1 thou/uL (1.20-3.40); #Monocytes 0.4 thou/uL (0.11-0.59); #Neutrophils 3.3 thou/uL (1.40-6.50); %Basophils 0.5 % (0.0-1.0); %Eosinophils 8.5 % (0.0-10.0); %Lymphocytes 20.4 % (21.0-51.0); %Monocytes 7.9 % (0.0-10.0); %Neutrophils 62.5 % (42.0-75.0); Mean Corpuscular HGB CONC 34.6 g/dL (32.0-36.0); Mean Corpuscular Hemoglobin 34.6 pg (27.0-31.0); Mean Platelet Volume 7.9 fL (7.4-10.4); Platelet Count 167 10x3/uL (130-400); RBC Distribution Width 12.6 % (11.5-14.5); Red Blood Cell (RBC) Count 2.31 mill/uL (4.70-6.10); White Blood Cell (WBC) Count 5.2 10x3/uL (4.8-10.8)
[2022-05-02 09:43] LABS: INR-International Normal Ratio 1.3; Prothrombin Time 16.6 sec (12.0-14.7)
[2022-05-02 09:51] LABS: ALT (SGPT) 12 U/L (8-55); AST (SGOT) 27 U/L (5-34); Alkaline Phosphatase 115 U/L (40-110); Anion Gap 13 mmol/L (10-20); BUN (Urea Nitrogen) 14 mg/dL (8.4-25.7); Bilirubin, Total 0.9 mg/dL (0.2-1.2); Calc. Creatinine Clearance 49 mL/min (70-130); Calcium 8.4 mg/dL (7.8-10.44); Carbon Dioxide 18 mmol/L (23-31); Chloride 109 mmol/L (98-107); Estimated GFR 57; Globulin 1.9 g/dL (2.4-3.5); Glucose 102 mg/dL (80-115); Potassium 3.6 mmol/L (3.5-5.1); Protein, Total 4.9 g/dL (5.8-8.1); Sodium 136 mmol/L (136-145)
[2022-05-02] MEDS ORDERED: FLU VACC QS2022-23(6MOS UP)/PF 60 MCG/0.5 ML SYRINGE IM ONE (14:00)
== END 2022-05-02 09:10 | disposition home or self-care (01) ==
LOC: ULT 07:25
PROVIDERS: ATTEND Internal Medicine Gastroenterology
PROC: 0W9G3ZZ Drainage of Peritoneal Cavity, Percutaneous Approach (ICD-10-PCS; principal; 2022-05-02)
DX: K74.60 Unspecified cirrhosis of liver (principal); R18.8 Other ascites; K76.82 Hepatic encephalopathy
CPT/HCPCS: 49083; 80053; 85025; 85610; J1642; P9047

== ENCOUNTER → 2022-05-09 | Day surgery (SDC) | payer BC ==
[2022-05-07 11:44] VITALS: BMI 19.3
[~2022-05-09] MED LIST changes: +Albumin 25% 200 ML ONE; +Albumin 25% 25 GM/100 ML BOT IVPB SCH; -FLU VACC QS2022-23(6MOS UP)/PF 60 MCG/0.5 ML SYRINGE IM ONE; +Lidocaine 1% PF 5 ML VIAL ONE; +Sodium Bicarbonate 2.5 MEQ/5 ML VIAL ONE
[2022-05-09 11:33] VITALS: BP 146/73
== END | disposition home or self-care (01) ==
LOC: ULT 08:26
PROVIDERS: ATTEND Internal Medicine Gastroenterology
PROC: 0W9G3ZZ Drainage of Peritoneal Cavity, Percutaneous Approach (ICD-10-PCS; principal; 2022-05-09)
DX: K74.60 Unspecified cirrhosis of liver (principal); R18.8 Other ascites
CPT/HCPCS: 49083; J1642; P9047

== ENCOUNTER 2022-05-16 09:21 | Day surgery (SDC) | payer BC ==
[2022-05-15 13:41] VITALS: BMI 19.4
[2022-05-16] MEDS ORDERED: Lidocaine 1% PF 5 ML VIAL ONE (09:24)
[2022-05-16] MEDS ORDERED: Albumin 25% 200 ML ONE (09:24)
[2022-05-16] MEDS ORDERED: Sodium Bicarbonate 2.5 MEQ/5 ML VIAL ONE (09:24)
[2022-05-16 11:25] VITALS: BP 139/68; TEMP 97.5
== END 2022-05-16 11:15 | disposition home or self-care (01) ==
LOC: ULT 09:21
PROVIDERS: ATTEND Internal Medicine Gastroenterology
PROC: 0W9G3ZZ Drainage of Peritoneal Cavity, Percutaneous Approach (ICD-10-PCS; principal; 2022-05-16)
DX: K70.31 Alcoholic cirrhosis of liver with ascites (principal); K76.82 Hepatic encephalopathy; Z79.2 Long term (current) use of antibiotics; Z79.899 Other long term (current) drug therapy
CPT/HCPCS: 49083; J1642; P9047

== ENCOUNTER 2022-05-23 07:38 | Day surgery (SDC) | payer BC ==
[2022-05-21 07:52] VITALS: BMI 19.5
[2022-05-23] MEDS ORDERED: Lidocaine 1% PF 5 ML VIAL ONE (07:42)
[2022-05-23] MEDS ORDERED: Albumin 25% 200 ML ONE (07:42)
[2022-05-23] MEDS ORDERED: Sodium Bicarbonate 2.5 MEQ/5 ML VIAL ONE (07:42)
[2022-05-23 09:24] LABS: #Eosinphils 0.3 thou/uL (0.0-0.7); #Lymphocytes 0.8 thou/uL (1.20-3.40); #Monocytes 0.3 thou/uL (0.11-0.59); #Neutrophils 3.4 thou/uL (1.40-6.50); %Basophils 0.5 % (0.0-1.0); %Eosinophils 5.9 % (0.0-10.0); %Lymphocytes 16.6 % (21.0-51.0); %Monocytes 6.6 % (0.0-10.0); %Neutrophils 70.4 % (42.0-75.0); Hemoglobin 8.9 g/dL (14.0-18.0); Mean Corpuscular HGB CONC 34.8 g/dL (32.0-36.0); Mean Corpuscular Hemoglobin 34.5 pg (27.0-31.0); Mean Corpuscular Volume 99.2 fl (78.0-98.0); Platelet Count 166 10x3/uL (130-400); RBC Distribution Width 12.3 % (11.5-14.5); Red Blood Cell (RBC) Count 2.59 mill/uL (4.70-6.10); White Blood Cell (WBC) Count 4.9 10x3/uL (4.8-10.8)
[2022-05-23 09:40] LABS: INR-International Normal Ratio 1.3; Prothrombin Time 16.2 sec (12.0-14.7)
[2022-05-23 09:41] LABS: PTT 53.9 sec (22.9-36.1)
[2022-05-23 09:51] LABS: ALT (SGPT) 10 U/L (8-55); AST (SGOT) 28 U/L (5-34); Albumin 3.4 g/dL (3.4-4.8); Alkaline Phosphatase 129 U/L (40-110); Anion Gap 12 mmol/L (10-20); BUN (Urea Nitrogen) 8 mg/dL (8.4-25.7); Bilirubin, Total 1.3 mg/dL (0.2-1.2); Calc. Creatinine Clearance 58 mL/min (70-130); Calcium 8.3 mg/dL (7.8-10.44); Carbon Dioxide 17 mmol/L (23-31); Chloride 109 mmol/L (98-107); Estimated GFR 69; Glucose 144 mg/dL (80-115); Potassium 3.8 mmol/L (3.5-5.1); Protein, Total 5.4 g/dL (5.8-8.1); Sodium 134 mmol/L (136-145)
[2022-05-23 12:14] VITALS: BP 134/80; TEMP 98.5
[2022-05-23] MEDS ORDERED: FLU VACC QS2022-23(6MOS UP)/PF 60 MCG/0.5 ML SYRINGE IM ONE (18:00)
== END 2022-05-23 09:11 | disposition home or self-care (01) ==
LOC: ULT 07:38
PROVIDERS: ATTEND Internal Medicine Gastroenterology
PROC: 0W9G3ZZ Drainage of Peritoneal Cavity, Percutaneous Approach (ICD-10-PCS; principal; 2022-05-23)
DX: K74.60 Unspecified cirrhosis of liver (principal); R18.8 Other ascites; K76.82 Hepatic encephalopathy; Z79.2 Long term (current) use of antibiotics; Z79.899 Other long term (current) drug therapy
CPT/HCPCS: 49083; 80053; 85025; 85610; 85730; J1642; P9047

== ENCOUNTER → 2022-05-30 | Day surgery (SDC) | payer BC ==
[2022-05-29 14:19] VITALS: BMI 19.4
[~2022-05-30] MED LIST changes: -Albumin 25% 25 GM/100 ML BOT IVPB SCH
[2022-05-30 12:07] VITALS: BP 159/62; TEMP 97.8
== END | disposition home or self-care (01) ==
LOC: ULT 08:45
PROVIDERS: ATTEND Internal Medicine Gastroenterology
PROC: 0W9G3ZZ Drainage of Peritoneal Cavity, Percutaneous Approach (ICD-10-PCS; principal; 2022-05-30)
DX: K70.31 Alcoholic cirrhosis of liver with ascites (principal); K76.82 Hepatic encephalopathy
CPT/HCPCS: 49083; J1642; P9047

== ENCOUNTER 2022-06-06 09:46 | Day surgery (SDC) | payer BC ==
[2022-06-04 11:06] VITALS: BMI 19.4
[2022-06-06] MEDS ORDERED: Lidocaine 1% PF 5 ML VIAL ONE (09:55)
[2022-06-06] MEDS ORDERED: Sodium Bicarbonate 2.5 MEQ/5 ML VIAL ONE (09:55)
[2022-06-06] MEDS ORDERED: Albumin 25% 100 ML ONE (09:55)
[2022-06-06 10:43] LABS: #Eosinphils 0.3 thou/uL (0.0-0.7); #Monocytes 0.4 thou/uL (0.11-0.59); #Neutrophils 3.1 thou/uL (1.40-6.50); %Basophils 0.3 % (0.0-1.0); %Eosinophils 6.9 % (0.0-10.0); %Lymphocytes 20.5 % (21.0-51.0); %Neutrophils 63.3 % (42.0-75.0); Hemoglobin 8.7 g/dL (14.0-18.0); Mean Corpuscular HGB CONC 34.7 g/dL (32.0-36.0); Mean Corpuscular Hemoglobin 34.4 pg (27.0-31.0); Mean Corpuscular Volume 99.2 fl (78.0-98.0); Mean Platelet Volume 7.7 fL (7.4-10.4); Platelet Count 146 10x3/uL (130-400); RBC Distribution Width 11.9 % (11.5-14.5); Red Blood Cell (RBC) Count 2.53 mill/uL (4.70-6.10); White Blood Cell (WBC) Count 4.9 10x3/uL (4.8-10.8)
[2022-06-06 11:09] LABS: ALT (SGPT) 9 U/L (8-55); AST (SGOT) 25 U/L (5-34); Albumin 3.1 g/dL (3.4-4.8); Alkaline Phosphatase 130 U/L (40-110); Anion Gap 10 mmol/L (10-20); BUN (Urea Nitrogen) 10 mg/dL (8.4-25.7); Bilirubin, Total 0.8 mg/dL (0.2-1.2); Calc. Creatinine Clearance 63 mL/min (70-130); Calcium 8.3 mg/dL (7.8-10.44); Carbon Dioxide 20 mmol/L (23-31); Chloride 109 mmol/L (98-107); Estimated GFR 78; Globulin 1.9 g/dL (2.4-3.5); Glucose 80 mg/dL (80-115); Potassium 4.1 mmol/L (3.5-5.1); Sodium 135 mmol/L (136-145)
[2022-06-06 11:21] VITALS: BP 160/87; TEMP 97.9
[2022-06-06 11:50] LABS: INR-International Normal Ratio 1.2; PTT 32.9 sec (22.9-36.1); Prothrombin Time 15.9 sec (12.0-14.7)
== END 2022-06-06 11:10 | disposition home or self-care (01) ==
LOC: ULT 09:46
PROVIDERS: ATTEND Internal Medicine Gastroenterology
DX: R18.8 Other ascites (principal); Z53.8 Procedure and treatment not carried out for other reasons; Z79.2 Long term (current) use of antibiotics; Z79.899 Other long term (current) drug therapy
CPT/HCPCS: 76705; 80053; 85025; 85610; 85730; J1642; P9047

== ENCOUNTER 2022-06-13 09:22 | Day surgery (SDC) | payer BC ==
[2022-06-13] MEDS ORDERED: Lidocaine 1% PF 5 ML VIAL ONE (09:25)
[2022-06-13] MEDS ORDERED: Sodium Bicarbonate 2.5 MEQ/5 ML VIAL ONE (09:25)
[2022-06-13] MEDS ORDERED: Albumin 25% 200 ML ONE (09:25)
[2022-06-13 11:02] VITALS: BP 151/73; TEMP 97.7
== END 2022-06-13 11:07 | disposition home or self-care (01) ==
LOC: ULT 09:22
PROVIDERS: ATTEND Internal Medicine Gastroenterology
PROC: 0W9G3ZZ Drainage of Peritoneal Cavity, Percutaneous Approach (ICD-10-PCS; principal; 2022-06-13)
DX: K74.60 Unspecified cirrhosis of liver (principal); R18.8 Other ascites; K76.82 Hepatic encephalopathy
CPT/HCPCS: 49083; J1642; P9047

== ENCOUNTER 2022-06-27 08:59 | Day surgery (SDC) | payer BC ==
[2022-06-27] MEDS ORDERED: Sodium Bicarbonate 2.5 MEQ/5 ML VIAL ONE (10:31)
[2022-06-27] MEDS ORDERED: Albumin 25% 200 ML ONE (10:31)
[2022-06-27] MEDS ORDERED: Lidocaine 1% PF 5 ML VIAL ONE (10:31)
[2022-06-27 13:07] VITALS: BP 169/77
[2022-06-27 13:12] LABS: #Eosinphils 0.4 thou/uL (0.0-0.7); #Lymphocytes 1.3 thou/uL (1.20-3.40); #Monocytes 0.5 thou/uL (0.11-0.59); #Neutrophils 2.9 thou/uL (1.40-6.50); %Basophils 0.7 % (0.0-1.0); %Eosinophils 7.2 % (0.0-10.0); %Lymphocytes 25.8 % (21.0-51.0); %Monocytes 8.9 % (0.0-10.0); %Neutrophils 57.4 % (42.0-75.0); Hemoglobin 9.5 g/dL (14.0-18.0); Mean Corpuscular HGB CONC 36.2 g/dL (32.0-36.0); Mean Corpuscular Hemoglobin 35.4 pg (27.0-31.0); Platelet Count 145 10x3/uL (130-400); RBC Distribution Width 12.3 % (11.5-14.5); Red Blood Cell (RBC) Count 2.67 mill/uL (4.70-6.10); White Blood Cell (WBC) Count 5.1 10x3/uL (4.8-10.8)
[2022-06-27 13:24] LABS: ALT (SGPT) 10 U/L (8-55); AST (SGOT) 28 U/L (5-34); Albumin 3.3 g/dL (3.4-4.8); Alkaline Phosphatase 145 U/L (40-110); Anion Gap 10 mmol/L (10-20); BUN (Urea Nitrogen) 11 mg/dL (8.4-25.7); Bilirubin, Total 1.3 mg/dL (0.2-1.2); Calc. Creatinine Clearance 55 mL/min (70-130); Calcium 8.5 mg/dL (7.8-10.44); Carbon Dioxide 20 mmol/L (23-31); Chloride 110 mmol/L (98-107); Estimated GFR 65; Globulin 2.3 g/dL (2.4-3.5); Glucose 75 mg/dL (80-115); Potassium 4.1 mmol/L (3.5-5.1); Protein, Total 5.6 g/dL (5.8-8.1); Sodium 136 mmol/L (136-145)
[2022-06-27 13:57] LABS: INR-International Normal Ratio 1.2; Prothrombin Time 15.9 sec (12.0-14.7)
[2022-06-27 13:58] LABS: PTT 35.7 sec (22.9-36.1)
== END 2022-06-27 12:27 | disposition home or self-care (01) ==
LOC: ULT 08:59
PROVIDERS: ATTEND Internal Medicine Gastroenterology
PROC: 0W9G3ZZ Drainage of Peritoneal Cavity, Percutaneous Approach (ICD-10-PCS; principal; 2022-06-27)
DX: K74.60 Unspecified cirrhosis of liver (principal); R18.8 Other ascites; Z79.2 Long term (current) use of antibiotics; Z79.899 Other long term (current) drug therapy
CPT/HCPCS: 49083; 80053; 85025; 85610; 85730; J1642; P9047

== ENCOUNTER 2022-07-11 09:21 | Day surgery (SDC) | payer BC ==
[2022-07-11] MEDS ORDERED: Lidocaine 1% PF 5 ML VIAL ONE (09:32)
[2022-07-11] MEDS ORDERED: Sodium Bicarbonate 2.5 MEQ/5 ML VIAL ONE (09:32)
[2022-07-11] MEDS ORDERED: Albumin 25% 200 ML ONE (09:38)
[2022-07-11 10:26] LABS: #Eosinphils 0.3 thou/uL (0.0-0.7); #Monocytes 0.4 thou/uL (0.11-0.59); #Neutrophils 3.3 thou/uL (1.40-6.50); %Basophils 0.7 % (0.0-1.0); %Eosinophils 5.1 % (0.0-10.0); %Lymphocytes 20.7 % (21.0-51.0); %Monocytes 7.2 % (0.0-10.0); %Neutrophils 66.3 % (42.0-75.0); Hemoglobin 9.3 g/dL (14.0-18.0); Mean Corpuscular Hemoglobin 34.1 pg (27.0-31.0); Mean Corpuscular Volume 97.6 fl (78.0-98.0); Mean Platelet Volume 7.8 fL (7.4-10.4); Platelet Count 138 10x3/uL (130-400); RBC Distribution Width 12.1 % (11.5-14.5); Red Blood Cell (RBC) Count 2.72 mill/uL (4.70-6.10)
[2022-07-11 10:38] LABS: INR-International Normal Ratio 1.2; Prothrombin Time 16.2 sec (12.0-14.7)
[2022-07-11 10:48] LABS: ALT (SGPT) 7 U/L (8-55); AST (SGOT) 21 U/L (5-34); Albumin 3.4 g/dL (3.4-4.8); Alkaline Phosphatase 143 U/L (40-110); Anion Gap 10 mmol/L (10-20); BUN (Urea Nitrogen) 13 mg/dL (8.4-25.7); Bilirubin, Total 1.3 mg/dL (0.2-1.2); Calc. Creatinine Clearance 0 mL/min (70-130); Calcium 8.3 mg/dL (7.8-10.44); Carbon Dioxide 19 mmol/L (23-31); Chloride 109 mmol/L (98-107); Estimated GFR 59; Globulin 2.1 g/dL (2.4-3.5); Glucose 102 mg/dL (80-115); Potassium 3.9 mmol/L (3.5-5.1); Protein, Total 5.5 g/dL (5.8-8.1); Sodium 134 mmol/L (136-145)
[2022-07-11 11:23] VITALS: BP 152/80
== END 2022-07-11 11:10 | disposition home or self-care (01) ==
LOC: ULT 09:21
PROVIDERS: ATTEND Internal Medicine Gastroenterology
PROC: 0W9G3ZZ Drainage of Peritoneal Cavity, Percutaneous Approach (ICD-10-PCS; principal; 2022-07-11)
DX: K70.31 Alcoholic cirrhosis of liver with ascites (principal); K76.82 Hepatic encephalopathy
CPT/HCPCS: 49083; 80053; 85025; 85610; J1642; P9047

== ENCOUNTER 2022-07-25 09:38 | Day surgery (SDC) | payer BC ==
[2022-07-25] MEDS ORDERED: Lidocaine 1% PF 5 ML VIAL ONE (09:52)
[2022-07-25] MEDS ORDERED: Albumin 25% 200 ML ONE (09:52)
[2022-07-25 09:55] LABS: #Eosinphils 0.3 thou/uL (0.0-0.7); #Monocytes 0.4 thou/uL (0.11-0.59); #Neutrophils 3.6 thou/uL (1.40-6.50); %Basophils 0.3 % (0.0-1.0); %Eosinophils 4.8 % (0.0-10.0); %Lymphocytes 19.8 % (21.0-51.0); %Neutrophils 68.1 % (42.0-75.0); Hemoglobin 10.1 g/dL (14.0-18.0); Mean Corpuscular Hemoglobin 33.8 pg (27.0-31.0); Mean Corpuscular Volume 96.6 fl (78.0-98.0); Mean Platelet Volume 7.9 fL (7.4-10.4); Platelet Count 140 10x3/uL (130-400); RBC Distribution Width 12.2 % (11.5-14.5); Red Blood Cell (RBC) Count 2.98 mill/uL (4.70-6.10); White Blood Cell (WBC) Count 5.3 10x3/uL (4.8-10.8)
[2022-07-25] MEDS ORDERED: Sodium Bicarbonate 2.5 MEQ/5 ML VIAL ONE (10:09)
[2022-07-25 10:23] LABS: ALT (SGPT) 9 U/L (8-55); AST (SGOT) 25 U/L (5-34); Albumin 3.6 g/dL (3.4-4.8); Alkaline Phosphatase 162 U/L (40-110); Anion Gap 14 mmol/L (10-20); BUN (Urea Nitrogen) 12 mg/dL (8.4-25.7); Bilirubin, Total 1.1 mg/dL (0.2-1.2); Calc. Creatinine Clearance 0 mL/min (70-130); Calcium 8.6 mg/dL (7.8-10.44); Carbon Dioxide 18 mmol/L (23-31); Chloride 107 mmol/L (98-107); Estimated GFR 58; Globulin 2.1 g/dL (2.4-3.5); Glucose 134 mg/dL (80-115); Potassium 4.6 mmol/L (3.5-5.1); Protein, Total 5.7 g/dL (5.8-8.1); Sodium 134 mmol/L (136-145)
[2022-07-25 11:31] LABS: PTT 34.9 sec (22.9-36.1)
[2022-07-25 11:33] LABS: INR-International Normal Ratio 1.2; Prothrombin Time 15.4 sec (12.0-14.7)
[2022-07-25 11:56] LABS: Follow-up Chemistry Comp? YES; Follow-up Hematology Comp? YES; Follow-up Result - Chemistry REPORT FAXED; Follow-up Result - Hematology REPORT FAXED
[2022-07-25 12:46] VITALS: BP 159/74; TEMP 97.8; BMI 19.5
== END 2022-07-25 12:05 | disposition home or self-care (01) ==
LOC: ULT 09:38
PROVIDERS: ATTEND Internal Medicine Gastroenterology
PROC: 0W9G3ZZ Drainage of Peritoneal Cavity, Percutaneous Approach (ICD-10-PCS; principal; 2022-07-25)
DX: K70.31 Alcoholic cirrhosis of liver with ascites (principal); K76.82 Hepatic encephalopathy
CPT/HCPCS: 49083; 85610; 85730; J1642; P9047

== ENCOUNTER 2022-08-08 09:11 | Day surgery (SDC) | payer BC ==
[2022-08-08] MEDS ORDERED: Sodium Bicarbonate 2.5 MEQ/5 ML VIAL ONE (09:47)
[2022-08-08] MEDS ORDERED: Lidocaine 1% PF 5 ML VIAL ONE (09:47)
[2022-08-08 10:51] VITALS: BP 149/81; TEMP 97.6
[2022-08-08] MEDS ORDERED: Albumin 25% 25 GM/100 ML BOT ONE (13:00)
== END 2022-08-08 10:55 | disposition home or self-care (01) ==
LOC: ULT 09:11
PROVIDERS: ATTEND Internal Medicine Gastroenterology
DX: K74.60 Unspecified cirrhosis of liver (principal); R18.8 Other ascites; K76.82 Hepatic encephalopathy; Z53.8 Procedure and treatment not carried out for other reasons
CPT/HCPCS: 76705; J1642; P9047

== ENCOUNTER 2022-08-15 09:22 | Day surgery (SDC) | payer BC ==
[~2022-08-15 09:22] MED LIST changes: -Lidocaine 1% PF 5 ML VIAL ONE; -Sodium Bicarbonate 2.5 MEQ/5 ML VIAL ONE
[2022-08-15] MEDS ORDERED: Sodium Bicarbonate 2.5 MEQ/5 ML VIAL ONE (09:42)
[2022-08-15] MEDS ORDERED: Albumin 25% 200 ML ONE (09:42)
[2022-08-15] MEDS ORDERED: Lidocaine 1% PF 5 ML VIAL ONE (09:42)
== END 2022-08-15 11:25 | disposition home or self-care (01) ==
LOC: ULT 09:22
PROVIDERS: ATTEND Internal Medicine Gastroenterology
PROC: 0W9G3ZZ Drainage of Peritoneal Cavity, Percutaneous Approach (ICD-10-PCS; principal; 2022-08-15)
DX: K74.60 Unspecified cirrhosis of liver (principal); R18.8 Other ascites; K76.82 Hepatic encephalopathy
CPT/HCPCS: 49083; J1642; P9047

== ENCOUNTER 2023-02-10 09:56 | Emergency (ER) | payer BC ==
[2023-02-10 11:09] LABS: Hematocrit 29.9 % (42.0-52.0); Hemoglobin 10.6 g/dL (14.0-18.0); Mean Corpuscular HGB CONC 35.5 g/dL (32.0-36.0); Mean Corpuscular Volume 93.1 fl (78.0-98.0); Mean Platelet Volume 11.7 fL (7.4-10.4); Platelet Count 133 10x3/uL (130-400); RBC Distribution Width 14.3 % (11.5-14.5); Red Blood Cell (RBC) Count 3.21 mill/uL (4.70-6.10); White Blood Cell (WBC) Count 2.1 10x3/uL (4.8-10.8)
[2023-02-10 11:21] LABS: Delete Auto Diff?? YES; Manual Diff?? YES
[2023-02-10 11:42] LABS: Band 2 % (5-11); Eosinophils 1 % (0-10); Lymphocytes 13 % (21-51); Monocytes 8 % (0-10); Neutrophil 76 % (42-75); Platelet Adequacy Comment Platelets Normal; Polychromasia SLIGHT = 2-3 cells (100X) (0-2/hpf)
[2023-02-10 11:53] LABS: ALT (SGPT) 11 U/L (8-55); AST (SGOT) 22 U/L (5-34); Albumin 3.7 g/dL (3.4-4.8); Alkaline Phosphatase 108 U/L (40-110); Anion Gap 15 mmol/L (10-20); BUN (Urea Nitrogen) 40 mg/dL (8.4-25.7); Bilirubin, Total 0.5 mg/dL (0.2-1.2); Calc. Creatinine Clearance 0 mL/min (70-130); Calcium 8.4 mg/dL (7.8-10.44); Carbon Dioxide 17 mmol/L (23-31); Chloride 107 mmol/L (98-107); Estimated GFR 55; Globulin 1.8 g/dL (2.4-3.5); Glucose 121 mg/dL (80-115); Protein, Total 5.5 g/dL (5.8-8.1); Sodium 134 mmol/L (136-145)
[2023-02-10 11:57] LABS: Troponin I Less than 0.010 ng/mL (< 0.028)
[2023-02-10 13:24] LABS: Bacteria/HPF None Seen HPF (None Seen); Bilirubin Negative (Negative); Blood, Urine Negative (Negative); CAUTI Indications for Culture Pelvic or flank pain; Clarity Clear (Clear); Glucose, Urine (Dipstick) Normal (Negative); Ketone, Urine Negative (Negative); Leukocyte Negative Leu/uL (Negative); Nitrite Negative (Negative); Protein, Urine (Dipstick) Negative (Neg-Trace); RBC/HPF None Seen HPF (0-3); Specific Gravity, Urine 1.017 (1.002-1.036); Squamous Epithelial None Seen HPF (0-3); Urobilinogen Normal mg/dL (Less than 2); WBC/HPF None Seen HPF (0-3)
[2023-02-10 13:27] LABS: Urine Culture Reflex No No
== END 2023-02-10 14:04 | disposition home or self-care (01) ==
LOC: ERS 09:56
DX: U07.1 COVID-19 (principal); I12.9 Hypertensive chronic kidney disease with stage 1 through stage 4 chronic kidney disease, or unspecified chronic kidney disease; N18.9 Chronic kidney disease, unspecified; D63.1 Anemia in chronic kidney disease; E86.0 Dehydration; D72.819 Decreased white blood cell count, unspecified; F17.210 Nicotine dependence, cigarettes, uncomplicated
CPT/HCPCS: 36415; 80053; 81001; 82140; 83605; 84484; 85025; 87040; 87086; 87635; 93005; 96360

== ENCOUNTER 2023-02-13 13:04 | Inpatient (IN) | payer BC ==
[2023-02-13 13:35] LABS: Hematocrit 30.8 % (42.0-52.0); Hemoglobin 10.9 g/dL (14.0-18.0); Mean Corpuscular HGB CONC 35.4 g/dL (32.0-36.0); Mean Corpuscular Hemoglobin 33.4 pg (27.0-31.0); Mean Corpuscular Volume 94.5 fl (78.0-98.0); Mean Platelet Volume 11.4 fL (7.4-10.4); Platelet Count 169 10x3/uL (130-400); Red Blood Cell (RBC) Count 3.26 mill/uL (4.70-6.10)
[2023-02-13 13:46] LABS: INR-International Normal Ratio 1.1; PTT 34.4 sec (22.9-36.1); Prothrombin Time 14.3 sec (12.0-14.7)
[2023-02-13 13:54] LABS: ALT (SGPT) 12 U/L (8-55); AST (SGOT) 23 U/L (5-34); Albumin 4.1 g/dL (3.4-4.8); Alkaline Phosphatase 121 U/L (40-110); Anion Gap 16 mmol/L (10-20); BUN (Urea Nitrogen) 27 mg/dL (8.4-25.7); Bilirubin, Total 0.9 mg/dL (0.2-1.2); Calc. Creatinine Clearance 0 mL/min (70-130); Calcium 8.8 mg/dL (7.8-10.44); Carbon Dioxide 18 mmol/L (23-31); Chloride 102 mmol/L (98-107); Estimated GFR 50; Globulin 2.6 g/dL (2.4-3.5); Glucose 192 mg/dL (80-115); Lipase 5 U/L (8-78); Potassium 5.2 mmol/L (3.5-5.1); Protein, Total 6.7 g/dL (5.8-8.1); Sodium 131 mmol/L (136-145)
[2023-02-13 13:56] LABS: Delete Auto Diff?? YES; Manual Diff?? YES
[2023-02-13 13:57] LABS: Troponin I Less than 0.010 ng/mL (< 0.028)
[2023-02-13 14:17] LABS: Band 3 % (5-11); CellaVision Operator ID LAB.MJL; Lymphocytes 21 % (21-51); Monocytes 4 % (0-10); Neutrophil 71 % (42-75); Ovalocytes SLIGHT = 2-5 cells HPF (0-1); Platelet Adequacy Comment Platelets Normal; Polychromasia SLIGHT = 2-3 cells HPF (0-2); Reactive Lymphocytes 1 % (0-10); Spherocytes SLIGHT = 1-5 cells HPF (None Seen); Total Cell Count 100
[2023-02-13 15:29] LABS: Bacteria/HPF None Seen HPF (None Seen); Bilirubin Negative (Negative); Blood, Urine Negative (Negative); CAUTI Indications for Culture Dysuria,urgency,freq; Clarity Clear (Clear); Glucose, Urine (Dipstick) Normal (Negative); Ketone, Urine Negative (Negative); Leukocyte Negative Leu/uL (Negative); Nitrite Negative (Negative); Protein, Urine (Dipstick) Negative (Neg-Trace); RBC/HPF None Seen HPF (0-3); Specific Gravity, Urine 1.017 (1.002-1.036); Squamous Epithelial 0-3 HPF (0-3); Urobilinogen Normal mg/dL (Less than 2); WBC/HPF None Seen HPF (0-3)
[2023-02-13 15:32] LABS: Urine Culture Reflex No No
[2023-02-13] MEDS ORDERED: Cefepime 2 GM VIAL ONE (15:37)
[2023-02-13] MEDS ORDERED: Sodium Chloride 0.9% 100 ML ONE (15:38)
[2023-02-13 15:40] LABS: Amphetamine Not Detected (NotDetected); Barbiturates Screen Not Detected (NotDetected); Benzodiazepine Screen Not Detected (NotDetected); Cocaine Metabolite Screen Not Detected (NotDetected); Methadone Not Detected (NotDetected); Methamphetamine Not Detected (NotDetected); Opiate Screen Detected (NotDetected); Oxycodone Screen Not Detected (NotDetected); Phencyclidine (PCP) Not Detected (NotDetected); THC/Cannabinoid Screen Not Detected (NotDetected); Tricyclic Screen Not Detected (NotDetected)
[2023-02-13] MEDS ORDERED: Vancomycin 1 GM/200 ML (FROZEN) BAG ONE (16:00)
[2023-02-13] MEDS ORDERED: LevoFLOXacin 750 mg/D5W 150 ml Premix Bag ONE (16:00)
[2023-02-13] MEDS ORDERED: Dexamethasone 10 MG/ML VIAL ONE (16:00)
[2023-02-13 16:37] LABS: Lactic Acid 1.4 mmol/L (0.5-2.2)
[2023-02-13 16:41] LABS: Acetaminophen Less than 10 mcg/mL (10.0-30.0); Alcohol Less than 10.0 mg/dL (Less than 10); Salicylate Less than 8.0 mg/dL (15.0-30.0)
[2023-02-13] MEDS: Mycophenolate 250 MG CAP PO SCH (20:14)
[2023-02-13] MEDS: Tacrolimus 1 MG CAP PO SCH (20:15)
[2023-02-13] MEDS: Pregabalin 25 MG CAP PO SCH (20:31)
[2023-02-13] MEDS: Sodium Chloride 0.9% 1,000 ML IV SCH (20:31)
[2023-02-13] MEDS: Heparin 5,000 UNITS/ML VIAL SC SCH (20:32)
[2023-02-13 23:43] VITALS: BMI 24.1
[2023-02-14 04:52] LABS: Hematocrit 25.5 % (42.0-52.0); Hemoglobin 9.2 g/dL (14.0-18.0); Mean Corpuscular HGB CONC 36.1 g/dL (32.0-36.0); Mean Corpuscular Hemoglobin 33.2 pg (27.0-31.0); Mean Corpuscular Volume 92.1 fl (78.0-98.0); Mean Platelet Volume 11.3 fL (7.4-10.4); Platelet Count 137 10x3/uL (130-400); RBC Distribution Width 13.6 % (11.5-14.5); Red Blood Cell (RBC) Count 2.77 mill/uL (4.70-6.10); White Blood Cell (WBC) Count 1.5 10x3/uL (4.8-10.8)
[2023-02-14 05:17] LABS: Delete Auto Diff?? YES; Manual Diff?? YES
[2023-02-14 05:21] LABS: ALT (SGPT) 10 U/L (8-55); AST (SGOT) 19 U/L (5-34); Albumin 3.1 g/dL (3.4-4.8); Alkaline Phosphatase 100 U/L (40-110); Anion Gap 13 mmol/L (10-20); BUN (Urea Nitrogen) 25 mg/dL (8.4-25.7); Bilirubin, Total 0.4 mg/dL (0.2-1.2); Calc. Creatinine Clearance 69 mL/min (70-130); Calcium 8.1 mg/dL (7.8-10.44); Carbon Dioxide 17 mmol/L (23-31); Chloride 108 mmol/L (98-107); Estimated GFR 64; Globulin 2.4 g/dL (2.4-3.5); Glucose 191 mg/dL (80-115); Potassium 5.6 mmol/L (3.5-5.1); Protein, Total 5.5 g/dL (5.8-8.1); Sodium 132 mmol/L (136-145)
[2023-02-14 07:19] LABS: Band 1 % (5-11); CellaVision Operator ID LAB.GE; Large Platelets 15.5 % (0-5); Lymphocytes 13 % (21-51); Monocytes 1 % (0-10); Neutrophil 85 % (42-75); Platelet Adequacy Comment Platelets Normal; Polychromasia SLIGHT = 2-3 cells HPF (0-2); Total Cell Count 103
[2023-02-14] MEDS: predniSONE 5 MG TAB PO SCH (07:43)
[2023-02-14] MEDS: Mycophenolate 250 MG CAP PO SCH ×2 (07:44→20:05)
[2023-02-14] MEDS: Pregabalin 25 MG CAP PO SCH ×2 (07:44→20:08)
[2023-02-14] MEDS: Heparin 5,000 UNITS/ML VIAL SC SCH ×3 (07:45→20:08)
[2023-02-14] MEDS: Aspirin 81 mg Enteric Coated Tablet PO SCH (07:45)
[2023-02-14] MEDS: Tacrolimus 1 MG CAP PO SCH ×2 (08:59→20:05)
[2023-02-14] MEDS: Sodium Chloride 0.9% 1,000 ML IV SCH ×2 (13:05→17:46)
[2023-02-14] MEDS: Sulfameth/Trimethoprim SS 400-80MG TAB PO SCH (13:05)
[2023-02-14] MEDS ORDERED: LevoFLOXacin 750 mg/D5W 750 MG in Premix 1 BAG IVPB SCH (17:00)
[2023-02-15 05:09] LABS: Hematocrit 26.1 % (42.0-52.0); Hemoglobin 9.1 g/dL (14.0-18.0); Mean Corpuscular HGB CONC 34.9 g/dL (32.0-36.0); Mean Corpuscular Volume 94.6 fl (78.0-98.0); Mean Platelet Volume 11.6 fL (7.4-10.4); Platelet Count 145 10x3/uL (130-400); RBC Distribution Width 14.2 % (11.5-14.5); Red Blood Cell (RBC) Count 2.76 mill/uL (4.70-6.10)
[2023-02-15 05:22] LABS: Delete Auto Diff?? YES; Manual Diff?? YES
[2023-02-15 05:42] LABS: ALT (SGPT) 11 U/L (8-55); AST (SGOT) 23 U/L (5-34); Albumin 3.2 g/dL (3.4-4.8); Alkaline Phosphatase 91 U/L (40-110); Anion Gap 14 mmol/L (10-20); BUN (Urea Nitrogen) 23 mg/dL (8.4-25.7); Bilirubin, Total 0.7 mg/dL (0.2-1.2); Calc. Creatinine Clearance 74 mL/min (70-130); Carbon Dioxide 16 mmol/L (23-31); Chloride 112 mmol/L (98-107); Estimated GFR 71; Globulin 2.1 g/dL (2.4-3.5); Glucose 85 mg/dL (80-115); Potassium 5.3 mmol/L (3.5-5.1); Protein, Total 5.3 g/dL (5.8-8.1); Sodium 137 mmol/L (136-145)
[2023-02-15 06:00] LABS: CellaVision Operator ID lab.abc; Large Platelets 12.7 % (0-5); Lymphocytes 27 % (21-51); Neutrophil 74 % (42-75); Platelet Adequacy Comment Platelets Normal; RBC Morphology Within Normal Limits; Smudge Cells 5.9 %; Total Cell Count 102
[2023-02-15] MEDS: Pregabalin 25 MG CAP PO SCH (07:50)
[2023-02-15] MEDS: Mycophenolate 250 MG CAP PO SCH (07:51)
[2023-02-15] MEDS: predniSONE 5 MG TAB PO SCH (07:51)
[2023-02-15] MEDS: Aspirin 81 mg Enteric Coated Tablet PO SCH (07:51)
[2023-02-15] MEDS: Sulfameth/Trimethoprim SS 400-80MG TAB PO SCH (07:51)
[2023-02-15] MEDS: Tacrolimus 1 MG CAP PO SCH (07:51)
[2023-02-15 08:30] VITALS: BP 125/77; TEMP 98
[2023-02-15] MEDS: Heparin 5,000 UNITS/ML VIAL SC SCH (10:29)
== END 2023-02-15 11:18 | disposition home or self-care (01) | DRG 871 ==
LOC: ERS 13:04 → ERHOLD 16:05 → MSONC 19:41
PROVIDERS: ADMIT Internal Medicine; ATTEND Family Medicine
DX: A41.9 Sepsis, unspecified organism (principal); J18.9 Pneumonia, unspecified organism; D84.9 Immunodeficiency, unspecified; Z94.4 Liver transplant status; N17.9 Acute kidney failure, unspecified; E27.40 Unspecified adrenocortical insufficiency; E86.0 Dehydration; Z96.651 Presence of right artificial knee joint; F17.210 Nicotine dependence, cigarettes, uncomplicated; Z96.611 Presence of right artificial shoulder joint; G62.9 Polyneuropathy, unspecified; I95.1 Orthostatic hypotension; Z98.890 Other specified postprocedural states; Z79.01 Long term (current) use of anticoagulants; Z79.899 Other long term (current) drug therapy
CPT/HCPCS: 36415; 71045; 80053; 80306; 80307; 81001; 82140; 82533; 82550; 83605; 83690; 84484; 85025; 85610; 85730; 87040; 93005; 96365; 96367; 96375; J0692; J1100; J1644; J1956; J3370-JW; J3490; J7050; J7507; J7512; J7517; J8499

== ENCOUNTER 2024-05-19 08:26 | Emergency (ER) | payer BC, MEDICARE ==
[2024-05-19 09:18] LABS: ALT (SGPT) 46 U/L (Less than 45); AST (SGOT) 114 U/L (11-34); Albumin 3.3 g/dL (3.1-4.5); Alkaline Phosphatase 241 U/L (40-110); Anion Gap 13 mmol/L (10-20); BUN (Urea Nitrogen) 44 mg/dL (8.4-25.7); Bilirubin, Total 0.4 mg/dL (0.3-1.2); Calc. Creatinine Clearance 0 mL/min (70-130); Calcium 8.4 mg/dL (7.8-10.44); Carbon Dioxide 15 mmol/L (23-31); Chloride 111 mmol/L (98-107); Estimated GFR 27; Globulin 3.8 g/dL (2.4-3.5); Glucose 115 mg/dL (80-115); Potassium 5.8 mmol/L (3.5-5.1); Protein, Total 7.1 g/dL (5.8-8.1); Sodium 133 mmol/L (136-145)
[2024-05-19 09:43] LABS: #Basophils Less than 0.03 10x3/uL (0.0-0.2); %Eosinophils 1.9 % (0.0-10.0); %Lymphocytes 32.6 % (21.0-51.0); %Monocytes 7.8 % (0.0-10.0); %Neutrophils 56.9 % (42.0-75.0); Hemoglobin 6.2 g/dL (14.0-18.0); Mean Corpuscular HGB CONC 32.6 g/dL (32.0-36.0); Mean Corpuscular Hemoglobin 27.2 pg (27.0-31.0); Mean Corpuscular Volume 83.3 fL (78.0-98.0); Mean Platelet Volume 11.3 fL (7.4-10.4); Platelet Count 41 10x3/uL (130-400); RBC Distribution Width 16.9 % (11.5-14.5); Red Blood Cell (RBC) Count 2.28 mill/uL (4.70-6.10)
[2024-05-19 10:23] LABS: Burr Cells SLIGHT = 2-5 cells HPF (0-1); Elliptocytes SLIGHT = 2-5 cells HPF (0-1); Macrocytosis SLIGHT = 6-15 cells HPF (0-5); Platelet Adequacy Comment Platelets Decreased; Polychromasia SLIGHT = 2-3 cells HPF (0-2); Schistocytes MODERATE= 6-15 cells HPF (0-1)
[2024-05-19] MEDS ORDERED: LOKELMA 10 GM PACKET PO SCH (11:00)
== END 2024-05-19 11:32 | disposition home or self-care (01) ==
LOC: ERS 08:26
DX: N18.9 Chronic kidney disease, unspecified (principal); D63.1 Anemia in chronic kidney disease; F17.210 Nicotine dependence, cigarettes, uncomplicated; E87.5 Hyperkalemia
CPT/HCPCS: 36430; 80053; 85025; 86850; 86900; 86901; 86920; 99284; P9016; 36415

== ENCOUNTER → 2024-11-12 | Day surgery (SDC) | payer MEDICARE ==
[2024-11-12 14:51] VITALS: BP 198/85; TEMP 97.6
== END ==
LOC: ONC/OP 11:09
PROVIDERS: ATTEND Nurse Practitioner Family
DX: D64.9 Anemia, unspecified (principal); D69.59 Other secondary thrombocytopenia
CPT/HCPCS: 36430; 86850; 86900; 86901; 86920; P9016

== ENCOUNTER 2024-11-17 15:00 | Emergency (ER) | payer MEDICARE ==
[2024-11-17 16:36] LABS: #Basophils Less than 0.03 10x3/uL (0.0-0.2); #Eosinophils 0.05 10x3/uL (0.0-0.7); #Monocytes 0.17 10x3/uL (0.11-0.59); #Neutrophils 1.73 10x3/uL (1.40-6.50); %Basophils 0.4 % (0.0-1.0); %Eosinophils 1.8 % (0.0-10.0); %Lymphocytes 29.9 % (21.0-51.0); %Monocytes 6.0 % (0.0-10.0); %Neutrophils 60.8 % (42.0-75.0); Hematocrit 24.0 % (42.0-52.0); Hemoglobin 7.7 g/dL (14.0-18.0); Mean Corpuscular Hemoglobin 26.9 pg (27.0-31.0); Mean Corpuscular Volume 83.9 fL (78.0-98.0); Platelet Count 33 10x3/uL (130-400); Red Blood Cell (RBC) Count 2.86 mill/uL (4.70-6.10); White Blood Cell (WBC) Count 2.84 10x3/uL (4.8-10.8)
[2024-11-17 17:01] LABS: ALT (SGPT) 9 U/L (Less than 45); AST (SGOT) 28 U/L (11-34); Albumin 3.7 g/dL (3.1-4.5); Alkaline Phosphatase 117 U/L (40-110); Anion Gap 14 mmol/L (10-20); BUN (Urea Nitrogen) 40 mg/dL (8.4-25.7); Bilirubin, Total 0.4 mg/dL (0.3-1.2); Calc. Creatinine Clearance 0 mL/min (70-130); Calcium 8.6 mg/dL (7.8-10.44); Carbon Dioxide 16 mmol/L (23-31); Chloride 110 mmol/L (98-107); Globulin 3.3 g/dL (2.4-3.5); Glucose 71 mg/dL (80-115); Potassium 5.8 mmol/L (3.5-5.1); Sodium 134 mmol/L (136-145)
[2024-11-17] MEDS ORDERED: Dextrose 50% Abboject 50 ML SYRINGE ONE (18:11)
[2024-11-17] MEDS ORDERED: Calcium Chloride 1 GM/10 ML Abboject SYRINGE ONE (18:11)
[2024-11-17 18:30] LABS: Platelet Adequacy Comment Significant decrease; Polychromasia SLIGHT = 2-3 cells (100X) (0-2/hpf)
[2024-11-17] MEDS ORDERED: LOKELMA 10 GM PACKET PO SCH (18:30)
[2024-11-17 18:31] LABS: Anisocytosis SLIGHT = 6-15 cells (100X) (0-5/hpf); Burr Cells SLIGHT = 2-5 cells (100X) (0-1/hpf); Schistocytes MODERATE= 6-15 cells (100X) (0-1/hpf)
[2024-11-17] MEDS ORDERED: hydrALAZINE 20 MG/ML VIAL ONE (18:38)
[2024-11-17 20:40] LABS: Anion Gap 12 mmol/L (10-20); BUN (Urea Nitrogen) 37 mg/dL (8.4-25.7); Calc. Creatinine Clearance 0 mL/min (70-130); Calcium 9.0 mg/dL (7.8-10.44); Carbon Dioxide 16 mmol/L (23-31); Chloride 110 mmol/L (98-107); Glucose 222 mg/dL (80-115); Potassium 4.4 mmol/L (3.5-5.1); Sodium 134 mmol/L (136-145)
== END 2024-11-17 22:13 | disposition home or self-care (01) ==
LOC: ERS 15:00
DX: E87.5 Hyperkalemia (principal); N18.9 Chronic kidney disease, unspecified; Z79.82 Long term (current) use of aspirin; F17.210 Nicotine dependence, cigarettes, uncomplicated
CPT/HCPCS: 36416; 85025; 93005; 96374; 96375; 96376; J0360; J1815; J7999